=== PATIENT | female | born 1950 | race Caucasian/White ===

== ENCOUNTER 2019-01-23 05:30 | Day surgery (SDC) | payer MEDICARE, SELFPAY ==
--- NOTE | 2019-01-10 20:44 | HP.PCM_ITS ---
History and Physical DATE OF SURGERY: 01/23/2019 SCHEDULED PROCEDURE: Cheilectomy of the left first metatarsal phalangeal joint HISTORY OF PRESENT ILLNESS: This is a 68-year-old female whose been having ongoing pain in bilateral feet for over one year. She denies any trauma or injury. She states her pain is primarily associated when she is walking in her shoe. Her pain is aching and sore. Pain can reach his high as an 8/10 while wearing shoes. She states the pain can get worse with certain shoe wear. Patient does complain of intermittent swelling. She does state her left is worse than her right foot. Pain is alleviated by elevating her feet and taking the shoes off. She denies numbness and tingling. Patient has a medical history pertinent for hypertension. She currently denies any chest pain, shortness of breath, fevers chills, recent infections. After failing conservative measures and discussing all treatment options with Dr. Marga Reyez, the patient would like to proceed with a cheilectomy of the left first metatarsal phalangeal joint. REVIEW OF SYSTEMS: ROS: Const: Denies anorexia, change in appetite, fever, difficulty sleeping, weight change. CV: Denies chest pain, heart murmur, irregular heartbeat and peripheral vascular disease. Resp: Denies asthma, cough, pneumonia, sleep apnea, shortness of breath, tuberculosis and wheezing. GI: Denies constipation, diarrhea, heartburn, nausea, rectal itching, bloody stools and vomiting. : Denies incontinence. Musculo: Denies leg swelling, pain, trouble walking and weakness. Skin: Denies Raynaud's, history of shingles and tattoo. Neuro: Denies ambulatory dysfunction, difficulty with balance, dizziness, numbness/tingling and tremor. Psych: Denies anxiety, depression, insomnia, mental illness and stress. Pj/Lymph: Denies anemia, bleeding/bruising tendency and past transfusion. Reviewed, no changes. PAST MEDICAL HISTORY: Advance Care Plan: No Advance Directives Effective Date: 10/25/2018 PMH: Medical Problems: Arthritis, High Blood Pressure Accidents: None Surgical Hx: Tubal Ligation, Cyst Removal Anesthesia Complications: Nausea Assistive Devices: Glasses Reviewed and updated. SOCIAL HISTORY: SH: Marital: .Occupation: Retired.Work Status: Retired.Hand Dominance: Right- handed. Personal Habits: Cigarette Use: Never Smoked Cigarettes.Alcohol: Denies use.Drug Use: Denies Use.Enjoy Exercising: Exercises 1-3 x/month. Reviewed, no changes. VITALS: Ht: 62 Wt: 143lb Wt k.[id number] BMI: 26.2 BP: 165/90 Pulse: 92 Resp: 16 T: 97.5 T: 36.4C ALLERGIES: No Known Drug Allergy MEDICATIONS: Ibuprofen 200 200 mg prn, Amlodipine Besylate 5 mg 1 tab PO daily, Hydrochlorothiazide 25 mg 1 tab PO daily PRE-OP EXAM: General appearance:NORMAL Other: Eyes: Conjunctivae and lids: NORMAL Pupils: ERR Ears, Nose, Mouth, and Throat: NORMAL Other: Inspection of lips, teeth and gums: NORMAL Other: Neck: Examination of neck: no masses noted. Respiratory: Assessment of respiratory effort: NORMAL Other: Auscultation of lungs: clear to auscultation no wheezes, rhonchi or rales. Cardiovascular: Auscultation of heart: regular rate and rhythm, no murmurs, gallops or rubs. Exam of carotid arteries: NORMAL Other: Gastrointestinal: Exam of abdomen: soft, nontender, nondistended bowel sounds present. PHYSICAL EXAMINATION: Patient has tenderness to palpation over bilateral first metatarsal phalangeal joints. There is hyperpigmentation to the dorsal/medial joint. Patient has extensive exostosis with the left being greater than the right. Range of motion is limited with pain on the first MTP joint bilaterally. Sensation intact to light touch. IMAGING STUDIES: IMPRESSION: 1. Hallux rigidus left foot 2. Hallux rigidus right foot 3. Hypertension PLAN: Dr. Marga Reyez did discuss and review with the patient all treatment options including surgical versus nonsurgical options. Patient does wish to proceed w ith the above-stated procedure. Potential risks, benefits, and complications of the procedure were discussed in detail including but not limited to , infection, nerve and blood vessel damage, persistent pain, numbness, tingling, paresthesias, blood clot, pulmonary embolism, and requirement for possible further surgery. The patient expressed full understanding and has no further questions for the doctor. Patient does agree to proceed with the above-stated procedure and has signed the surgery consent form. This dictation was created using voice recognition software. Phonetic and/or grammatical errors may exist.. ___ I have re-examined the patient. There are no clinical changes since date of exam. ___ See progress notes for changes. ___ Dictated on admission Date: Time: Signature:
[2019-01-23 05:56] VITALS: BP 130/87; PULSE 85; RESP 14; TEMP 36.9; O2SAT 98; BMI 25.7
[2019-01-23] MEDS: Cefazolin 2 GM in 0.9% Normal Saline 100 ML IV (07:20)
--- NOTE | 2019-01-23 07:30 | RAD_ITS ---
STUDY: X-RAY - LEFT FOOT CLINICAL: First metatarsal cheilectomy. TECHNIQUE: 2 intraoperative view(s) of the foot. COMPARISON: None. FINDINGS: There are postoperative changes of the first metatarsal head. There are overlying surgical sponges on the AP view. Electronically Signed: Osmin Puente MD at 12:49 EDT Tel , Service support , RAD/Foot 2 Views
[2019-01-23] MEDS: Bupivacaine Mpf 0.5% 30 ML VIAL (08:25)
[2019-01-23 08:35] VITALS: BP 130/87; BP 144/81; PULSE 82; RESP 12; TEMP 36.8; O2SAT 97
--- NOTE | 2019-01-23 08:37 | RAD_ITS ---
STUDY: X-RAY - LEFT FOOT CLINICAL: Female, 68 years old. Postoperative for first metatarsal phalangeal cheilectomy. TECHNIQUE: 3 view(s) of the foot. COMPARISON: None. FINDINGS: Normal talus, calcaneus, and tarsal bones. Normal visualized subtalar, talonavicular, calcaneocuboid, tarsal and tarsometatarsal articulations. Normal metatarsi. Postoperative changes at the first metatarsophalangeal joint. Normal tibial and fibular sesamoid bones. Normal interphalangeal joint of the great toe. Normal phalanges of the great toe. Normal second through fifth metatarsophalangeal joints. Normal interphalangeal joints and phalanges of the lesser toes. There is non-specific soft tissue swelling of the foot. RAD/Foot min 3 Views IMPRESSION: Postoperative changes at the first metatarsophalangeal joint. Postoperative soft tissue swelling. Electronically Signed: Edward Lara, at 15:26 EDT , Service support ,
--- NOTE | 2019-01-23 08:39 | PCM.OPRPT ---
Report of Operation Date of Procedure: 01/23/19 Pre-Operative Diagnosis: L hallux rigidus; L 1st MPJ OA Post-Operative Diagnosis: same Surgery/Procedure Performed:: L 1st MPJ cheilectomy w/ microfracture of joint Description of Surgical Findings:: see dictation Type of Anesthesia:: General/Supplemental Description of Procedure: Indications: Pt is a 68 yo F with a history of bilateral 1st metatarsophalangeal joint pain and limited motion that has progressively worsened. She was seen in clinic in October 2018 and radiographs were reviewed as were conservative and surgical options. Patient elected to have a cheilectomy of the left foot done first and wanted to wait until the new year. Patient would like surgical intervention today. All risks, complications, and alternatives were discussed with the patient, and the patient signed an informed consent. No guarantees were given. Procedure: On 01/23/2019, Sapna Alexis was visually and verbally identified in the preoperative holding area. The consent form was again reviewed with the patient, as were all risks, complications, and alternatives and the patient wished to proceed with the proposed surgery. The left foot was marked as the correct operative extremity. The patient was brought to the operating room and placed on the operating room table in the normal supine position. After induction by anesthesia, a surgical time out was performed and all present were in agreement. a pneumatic ankle tourniquet was then placed. At this time the left lower extremity was prepped and draped in the usual sterile fashion. after exsanguination with an esmarch the tourniquet was inflated to 250 mmHg. 10 cc of 0.5% marcaine plain was injected as a Lerner block. At this time attention was directed to the Left dorsal 1st metatarsophalangeal joint. Using a #15 blade a longitudinal incision was made just medial and parallel to the extensor hallucis longus tendon from the base of the proximal phalanx of the hallux to the midpoint of the 1st metatarsal. The incision was bluntly carried deep through the subcutaneous tissues with careful attention paid to all bleeders, which were clamped and tied or bovied as necessary. All vital neurovascular structures were retracted. The extensor tendon was retracted.The subcutaneous tissues were reflected from the medial aspect of the 1st metatarsophalangeal joint capsule. Using a sagittal saw bony exostosis was removed from the medial, dorsal and lateral 1st metatarsal head as well as the base of the proximal phalanx. Medially, care was taken to not resect the sagittal groove. A hand rasp was used to contour the bones. Improved range of motion was noted immediately with increased dorsiflexion and plantarflexion of the hallux. The cartilage of the 1st metatarsal head was noted to be thinned. It had a cartilage defect in the lateral central portion and well as dorsomedially. The area was microfractured using a 0.045 k wire. This was then repeated on the thinned cartilage of the base of the proximal phalanx in areas of erosion. The joint was flushed with copious amounts of normal sterile saline. The deep fascia, periosteum, and capsular tissues of all areas were closed with #2-0 Vicryl. Subcutaneous tissues of the incision was closed with #3-0 Vicryl. The skin of the 1st metatarsophalangeal joint incision was closed with #3.0 prolene. An additional 10 cc of 0.5% marcaine plain was injected at the surgical site at the end of the case. Adaptic and Dry sterile dressings were applied with a light compressive dressing. The tourniquet was deflated and immediate capillary refill was noted to all digits. Total tourniquet time was 41 minutes with immediate capillary refill noted to all digits upon deflation. The patient tolerated the procedure and anesthesia well. The patient was then transported to the postanesthesia care unit by a member of the anesthesia team and myself with all vital signs stable and neurovascular status of the left lower extremity equal to pre-operative levels. At the end of the case all sponge, needle and instrument counts were found to be correct. Grafts/Implants Used: none - Complications none - Admit VTE Documentation VTE Present on Admission: No VTE Mechan Device Prophylaxis: SCD's, Knee High ERNESTINE Hose VTE Pharm Prophylaxis ordered?: Yes
--- NOTE | 2019-01-23 08:43 | PCM.DC.ORTHO ---
Discharge Activity: May Not Drive, May not drive while taking narcotic pain medications., May Not Shower, Use Walker, Use Crutches Weight Bearing Status: Partial weight bearing - heel weightbearing in surgical shoe Keep extremity elevated above heart level: Operative Extremity Call your doctor if your incision/area has: Sudden Increased Bleeding Call your doctor if you observe: Fever of 101 or Higher, Shortness of breath, Dizziness, Chest pain, Increased palpitations (irregular heartbeat), Calf discomfort Cleanse incision/area with: Keep Dressing Clean & Dry Allergies/Adverse Reactions: Allergies No Known Allergies Allergy (Verified 01/16/19 14:11) Medications to take at Discharge Amlodipine Besylate 5 mg PO DAILY 01/16/19 Hydrochlorothiazide [Hctz] 25 mg PO DAILY 01/16/19 Acetaminophen/Codeine #3 [Tylenol#3] 1 tab PO Q4H PRN PRN 7 Days #30 tab 01/23/19 The following prescriptions were given: Acetaminophen/Codeine #3 [Tylenol#3] 1 tab PO Q4H PRN PRN 7 Days #30 tab PRN Reason: Pain Primary Care Physician: Marisela Hollis NP-C [Primary Care Provider] - Test Results: Test results from this visit will be discussed in further detail at your follow-up appointment, if applicable. Please Follow Up With: Marga Reyez DPM - Please follow up next week at your previously scheduled post operative appointment Proposed Discharge Date: 01/23/19
[2019-01-23 08:45] VITALS: BP 130/87; BP 133/81; PULSE 75; RESP 14; O2SAT 94
--- NOTE | 2019-01-23 08:46 | DCINST_ITS ---
Discharge Activity: May Not Drive, May not drive while taking narcotic pain medications., May Not Shower, Use Walker, Use Crutches Weight Bearing Status: Partial weight bearing - heel weightbearing in surgical shoe Keep extremity elevated above heart level: Operative Extremity Call your doctor if your incision/area has: Sudden Increased Bleeding Call your doctor if you observe: Fever of 101 or Higher, Shortness of breath, Dizziness, Chest pain, Increased palpitations (irregular heartbeat), Calf discomfort Cleanse incision/area with: Keep Dressing Clean & Dry Allergies/Adverse Reactions: Allergies No Known Allergies Allergy (Verified 01/16/19 14:11) Medications to take at Discharge Amlodipine Besylate 5 mg PO DAILY 01/16/19 Hydrochlorothiazide [Hctz] 25 mg PO DAILY 01/16/19 Acetaminophen/Codeine #3 [Tylenol#3] 1 tab PO Q4H PRN PRN 7 Days #30 tab 01/23/19 The following prescriptions were given: Acetaminophen/Codeine #3 [Tylenol#3] 1 tab PO Q4H PRN PRN 7 Days #30 tab PRN Reason: Pain Primary Care Physician: Marisela Hollis NP-C [Primary Care Provider] - Test Results: Test results from this visit will be discussed in further detail at your follow- up appointment, if applicable. Please Follow Up With: Marga Reyez DPM - Please follow up next week at your previously scheduled post operative appointment Proposed Discharge Date: 01/23/19
[2019-01-23 09:00] VITALS: BP 130/87; BP 142/82; PULSE 76; RESP 14; O2SAT 95
[2019-01-23] MEDS: Ketorolac 30 MG/ML Syringe IV (09:06)
[2019-01-23 09:09] VITALS: BP 130/87; BP 135/82; PULSE 80; RESP 16; TEMP 36.4; O2SAT 92
[2019-01-23 10:57] VITALS: BP 130/87; BP 143/85; PULSE 90; RESP 16; TEMP 36.7; O2SAT 100
== END 2019-01-23 10:59 | disposition home or self-care (01) ==
LOC: SDC 05:35 → AC 05:35
PROVIDERS: Family Provider Nurse Practitioner Primary Care; PCP Nurse Practitioner Primary Care; Referring Provider Podiatrist Foot & Ankle Surgery; Visit Provider Podiatrist Foot & Ankle Surgery
PROC: (CPT 28289; principal; 2019-01-23 07:15)
DX: M20.22 Hallux rigidus, left foot (principal); M20.21 Hallux rigidus, right foot; M18.9 Osteoarthritis of first carpometacarpal joint, unspecified; I10 Essential (primary) hypertension; Z79.899 Other long term (current) drug therapy
CPT/HCPCS: 01480; 28289; 73620; 73630; 76000; J7120; J2405

== ENCOUNTER → 2022-08-16 | Outpatient (CLI) | payer MEDICARE, SELFPAY ==
[2022-08-16 16:52] LABS: Absolute Lymphocyte Count 1.72 X10^3/uL (0.83-4.51); Absolute Neutrophil Count 2.8 X10^3/uL (2.0-7.7); Basophil# 0.02 X10^3/uL; Basophil% 0.4 % (0-1); Eosinophil# 0.08 X10^3/uL; Eosinophils% 1.5 % (0-5); Hematocrit 38.2 % (37-47); Hemoglobin 12.6 g/dL (12.0-15.0); Lymphocyte # 1.72 X10^3/ul (0.83-4.51); Lymphocyte % 33.2 % (19-41); Mean Corpuscular Hgb 26.7 pg (27.0-32.0); Mean Corpuscular Volume 80.9 fL (81-99); Mean Platelet Vol. 9.7 fl (6.2-12.0); Monocyte# 0.54 X10^3/uL; Monocyte% 10.4 % (0-10); NRBC Flagged by Analyzer 0 % (0-5); Neutrophil % 54.1 % (47-70); Platelet Count 215 K/mm3 (150-450); RBC Distribution Width CV 15.9 % (11.6-14.6); RBC Distribution Width SD 46.5 fl (35.1-43.9); Red Blood Count 4.72 M/mm3 (4.2-5.4); White Blood Count 5.2 K/mm3 (4.4-11.0)
[2022-08-16 17:16] LABS: Erythrocyte Sedimentation Rate 90 mm/hr (0-30)
[2022-08-16 17:24] LABS: ALB/GLOB Ratio 0.8 RATIO (0.9-2.4); AST(SGOT) 27 U/L (15-37); Alanine Aminotransfer ALT/SGPT 31 U/L (13-56); Albumin, Serum 3.7 g/dL (3.2-5.0); Alkaline Phosphatase 99 U/L (45-117); Anion Gap 8 (5-15); BUN 13 mg/dL (7-18); BUN/Creat Ratio 13.9 RATIO (10-20); Chloride 104 mmol/L (98-107); Creatinine, Serum 0.93 mg/dL (0.55-1.02); EST Glomerular Filtration Rate 63 mL/min (>60); Est Glom Filt Rate - Afr Amer 76 mL/min (>60); Ferritin 203 ng/mL (8-252); Globulin 4.8 g/dL (2.2-4.2); Glucose 88 mg/dL (74-106); LDH 234 U/L (84-246); Potassium 3.1 mmol/L (3.5-5.1); Protein, Total 8.5 g/dL (6.4-8.2); Sodium Level 139 mmol/L (136-145)
[2022-08-16 17:44] LABS: Prothrombin Time (Protime)PT. 13.4 SECONDS (11.7-14.9)
[2022-08-16 17:45] LABS: International Normalized Ratio 1.1
[2022-08-18 14:09] LABS: Anti-Centromere B Ab <0.2 AI (0.0-0.9); Anti-Chromatin 0.2 AI (0.0-0.9); Anti-Jo <0.2 AI (0.0-0.9); Anti-Scleroderma-70 AB <0.2 AI (0.0-0.9); RNP Ab <0.2 AI (0.0-0.9); SJOGREN'S Anti-SS-A test < 0.2 AI (0.0-0.9); SJOGREN'S Anti-SS-B test 0.3 AI (0.0-0.9); Smith Ab <0.2 AI (0.0-0.9)
[2022-08-19 10:09] LABS: Angiotensin Convert Enzyme 41 U/L (14-82); Cytoplasmic Ab (C-ANCA) <1:20 titer (Neg:<1:20)
[2022-08-19 12:29] LABS: Anti-Mitochondrial AB 73.6 Units (0.0-20.0); Anti-dsDNA Ab 3 IU/mL (0-9)
[2022-08-20 15:32] LABS: Anti-Smooth Muscle ABS 65 Units (0-19); Copper, Serum or Plasma 137 ug/dL (80-158); Haptoglobin 124 mg/dL (42-346); Perinuclear Ab (P-ANCA) <1:20 titer (Neg:<1:20)
== END | disposition home or self-care (01) ==
LOC: LAB 16:26
PROVIDERS: PCP Nurse Practitioner Primary Care; Visit Provider Internal Medicine Gastroenterology
DX: K76.9 Liver disease, unspecified (principal)
CPT/HCPCS: 36415; 80053; 82140; 82164; 82390; 82525; 82728; 83010; 83516; 83615; 85025; 85610; 85652; 86140; 86225; 86235; 86256

== ENCOUNTER → 2022-08-23 | Outpatient (CLI) | payer MEDICARE, SELFPAY ==
[2022-08-23] VITALS (11 sets, daily range): BP systolic 138–183; BP diastolic 73–85; PULSE 59–78; RESP 12–22; TEMP 36.6; O2SAT 95–100; BMI 23.9
--- NOTE | 2022-08-23 | LIV_PTH ---
PATIENT: CELINE NEWTON LOC: [place] U#:[id number] AGE/SX: 71/F ROOM: RE08/23/[address]: Dr. Jet Spencer DO : 1950 BED: DIS: 08/23/2022 SPEC #: [id number] RECD: 08/23/22 12:40 STATUS: PAULA REAristides #: [id number] SHAWNA: 08/23/22 00:[address]: Jet Spencer DEPT: SURGICAL PATHOLOGY RECD BY: Jose Dominguez ENTERED: 08/23/22 12:41 SP TYPE: LIVER RES OTHR DR: Marisela Hollis, CORE ANALYSIS OPERATOR-C Tissues: Liver, NOS Procedures: PAS with Diastase (control) Trichrome (control) Special Stain Group II PAS Stain (control) Surgery Specimen Level V Retic (control) Iron Stain (control) HEADER OPERATION: Liver biopsy PRE-OP DIAGNOSIS: Liver disease TISSUE SUBMITTED: Liver 18-gauge x3 MICROSCOPIC DIAGNOSIS Liver, core biopsy: Consistent with cirrhosis. See microscopic description and comment. SJ:michelle 08/24/2022 COMMENT Correlation with clinical, laboratory studies, radiologic findings and appropriate follow up are necessary. Differential diagnosis includes cirrhosis secondary to primary biliary cirrhosis and/or autoimmune hepatitis. Case has been reviewed in consultation with Dr. Atkins who concurs with the above diagnosis. IDC:[facility] MICROSCOPIC DESCRIPTION Slides are reviewed. The specimen shows liver parenchymal tissue with distortion of normal lobular architecture into multiple nodules divided by fibrous septae. Hepatocytes show focal mild macro- and microvesicular steatosis. Focal minimal inflammation is noted in the nodules. Fibrous septae in between nodules show chronic inflammatory infiltrates consisting predominantly of lymphocytes, rare plasma cells and eosinophils. Granulomas are not seen. Focal interface inflammation is also noted. Focal area also shows minimal bile duct destruction. Iron stain shows absent iron. Reticulin and trichrome stains highlights the fibrous septae. PAS stain with and without diastase do not show any abnormal accumulation of protein. All stains are performed with appropriate matched controls. GROSS DESCRIPTION Received in fixative is one container labeled with the patient's name and designated liver. The specimen consists of three elongated fragments of luna soft tissue each measuring 1.9 cm in length and 0.1 cm in diameter. The specimen is totally submitted in one cassette. / LEATHA:michelle 08/23/2022 TC:3 CPT: 05246, 76884 x5
[2022-08-23] MEDS: Midazolam 2 MG/2 ML Syringe IV (09:12)
[2022-08-23] MEDS: fentaNYL 100 MCG/2 ML Ampul IV (09:14)
[2022-08-23] MEDS: Lidocaine 2% (20 ml mdv) 20 ML Vial INFILT (09:25)
--- NOTE | 2022-08-23 09:35 | CT_ITS ---
PROCEDURE: CT DIRECTED CORE LIVER BIOPSY INDICATION: Female, 71 years old. Liver disease PHYSICIAN: Dr. AMIE Arias CONSENT: Written informed consent was obtained having explained the risks, benefits and alternatives in detail with the patient who accepted the risks and agreed to proceed. Laboratory review and clinical assessment was performed. CONSCIOUS SEDATION PROTOCOL: The Drugs used were: 2 mg Versed, IV., and 50 mcg Fentanyl, IV. The sedation time was: 21 minutes. Conscious sedation was started at 9:12 AM and terminated at 9:33 AM. The conscious sedation protocol was independently monitored. RADIATION DOSAGE (If Supplied By Facility): CTDIvol = ( 15 ) mGy, DLP = ( 266.85 ) mGycm Individualized dose optimization techniques were used for this CT. TECHNIQUE: Using CT image guidance with image documentation, a suitable location in the right lobe of the liver was identified. Using an anterior approach, puncture of the liver was uneventful with an 18-gauge core needle system. 3, 18-gauge core samples were obtained, and submitted in formalin to the pathologist for further assessment. Followup CT scan revealed no distinct sequelae. CT/Biopsy/Inj or Needle Placement IMPRESSION: 1. CT directed core needle biopsy of the liver, using CT image guidance with image documentation as described. 2. Conscious Sedation protocol utilized with independent monitoring. Electronically Signed: Edward Lara MD at 9:54 EDT ,
--- NOTE | 2022-08-23 11:23 | NURSING ---
ChristianoRN spoke with Dr. Lara regarding patient's pain. Pt's VS have remained stable. Pt was having RUQ abdominal pain prior to procedure. Pt describes pain as similar to prior to biopsy, but more severe and constant. Pt instructed to take home pain medications and to avoid any strenuous activity. Pt is agreeable to plan. Pt also given liability claims examiner phone number in case she has any questions or concerns.
== END | disposition home or self-care (01) ==
PROVIDERS: PCP Nurse Practitioner Primary Care; Referring Provider Internal Medicine Gastroenterology; Visit Provider Internal Medicine Gastroenterology
DX: K76.9 Liver disease, unspecified (principal)
CPT/HCPCS: 47000; 77012; 88305; 88307; 88313; 99156; J7050

== ENCOUNTER 2022-10-16 12:13 | Emergency (ER) | payer MEDICARE, SELFPAY ==
[2022-10-16] VITALS (7 sets, daily range): BP systolic 137–154; BP diastolic 68–90; PULSE 77–92; RESP 15–20; TEMP 36.6–37.2; O2SAT 96–100; BMI 24.7
--- NOTE | 2022-10-16 12:33 | EKG12_ITS ---
Test Reason : WEAKNESS Blood Pressure : / mmHG Vent. Rate : 092 BPM Atrial Rate : 092 BPM P-R Int : 128 ms QRS Dur : 072 ms QT Int : 342 ms P-R-T Axes : 014 016 030 degrees QTc Int : 422 ms Normal sinus rhythm Normal ECG Confirmed by BRYCE GRULLON, ADELFO ([id number]), supervising editor news reel BLAINE CRUZ ([id number]) on 10/19/2022 12:35:09 PM Referred By: STEPHANIE Confirmed By:ADELFO WU MD
--- NOTE | 2022-10-16 12:33 | RAD_ITS ---
EXAM: XR CHEST, 1 VIEW CLINICAL INDICATION: cough, sob TECHNIQUE: Frontal view of the chest. This report was created using [employer] report generation technology. COMPARISON: None. FINDINGS: LUNGS AND PLEURAL SPACES: Unremarkable. No consolidation or edema. No pneumothorax. No effusion. HEART: Unremarkable. Cardiac silhouette not enlarged. MEDIASTINUM: Central airways and mediastinal contour are unremarkable. BONES/JOINTS: Unremarkable. SOFT TISSUES: Unremarkable. RAD/Chest 1 View (Portable) IMPRESSION: No radiographic evidence of acute cardiopulmonary disease. Electronically Signed: Jaiden Vu MD at 13:39 EST ,
--- NOTE | 2022-10-16 12:35 | EDS_ITS ---
HPI History of Present Illness Chief Complaint: General Illness Informant: patient Onset/Context/Timing Onset: Days Context: Gradual Onset Narrative Narrative: Patient presents secondary to blood in her stool for the past week with abdominal pain and nausea since yesterday. She has altered taste sensation with a mild cough. [facility]. Her COVID and influenza test were reportedly negative there. Because of her weakness EMS was called and she was transported to the ER. Patient does have a history of autoimmune hepatitis and cirrhosis. She states she has not had GI bleeding in the past. [facility] Medical History Abdominal pain Adrenal nodule Back pain Elevated liver enzymes GERD (gastroesophageal reflux disease) HTN (hypertension) Hyperlipidemia Hypokalemia Nausea Osteoporosis Pelvic pain Thyroid nodule Home Medications amlodipine 5 mg tablet 5 mg PO DAILY 01/16/19 [History Last Taken 01/23/19 04:50 5 MG] hydrochlorothiazide 25 mg tablet 25 mg PO DAILY 01/16/19 [History Last Taken Unknown] atorvastatin 20 mg tablet 20 mg PO DAILY 06/16/22 [History Last Taken Unknown] meloxicam 15 mg tablet 15 mg PO DAILY 06/16/22 [History Last Taken Unknown] omeprazole 40 mg capsule,delayed release 40 mg PO DAILY 06/16/22 [History Last Taken Unknown] azathioprine 50 mg tablet 100 mg PO DAILY #30 tabs 08/25/22 [Rx Last Taken Unknown] prednisone 20 mg tablet 40 mg PO DAILY 30 days #60 tabs 08/25/22 [Rx Last Taken Unknown] ursodiol 250 mg tablet See Rx Instructions .Route .COMPLEX #60 tabs 09/16/22 [Rx Last Taken Unknown] dicyclomine 20 mg tablet 20 mg PO BID PRN abdominal cramping #10 tabs 10/16/22 [Rx Last Taken Unknown] nitrofurantoin monohydrate/macrocrystals 100 mg capsule (Macrobid) 100 mg PO Q12H 5 days #10 caps 10/16/22 [Rx Last Taken Unknown] ondansetron 4 mg disintegrating tablet 4 mg PO Q8H PRN nausea and vomiting #10 tabs 10/16/22 [Rx Last Taken Unknown] Allergy/AdvReac Type Severity Reaction Status Date / Time Estrogens AdvReac Other Verified 10/16/22 12:17 Family History Father Alzheimer disease Mother Diabetes Hypertension Heart disease CVA (cerebral vascular accident) Sister Breast cancer Heart disease Surgical History History of cholecystectomy Social History Smoking Status: Never smoker alcohol intake: never ROS ROS ED Constitutional Constitutional ED: Denies chills or fever(s) Eyes Eyes: Denies change in vision or discharge from eye(s) ENT ENT ED: Denies discharge from eye(s), rhinorrhea or sore throat Cardiovascular Cardiovascular: Denies chest pain or palpitations Respiratory/Chest Respiratory/Chest: Reports cough; Denies dyspnea Gastrointestinal Gastrointestinal: Reports abdominal pain, nausea and other Details: Blood in stool ; Denies diarrhea or vomiting Genitourinary Genitourinary ED: Denies difficulty urinating or dysuria Musculoskeletal Musculoskeletal: Reports myalgias; Denies back pain or extremity pain Integumentary Denies Abrasions or rash Neurologic Neurologic: Reports weakness; Denies headache(s) Psychiatric Psychiatric: Denies anxiety or depression Allergic/Immunologic Allergic/Immunologic ED: Denies lip swelling or urticaria EXAM Physical Exam Const Vital Signs: 10/16/22 12:17 10/16/22 12:22 10/16/22 13:10 Temperature 99.0 F 99.0 F Temperature Source Oral Oral Pulse Rate 92 92 Respiratory Rate 15 15 Respiratory Pattern Normal Blood Pressure 144/90 H 144/90 H Blood Pressure Mean 108 108 Pulse Ox 98 98 Oxygen Delivery Method Room Air Room Air 10/16/22 13:22 10/16/22 13:54 10/16/22 14:48 Temperature 97.9 F Temperature Source Temporal Pulse Rate 77 79 78 Respiratory Rate 16 20 H 18 Respiratory Pattern Blood Pressure 154/89 H 138/90 H 150/85 H Blood Pressure Mean 110 106 106 Pulse Ox 100 96 99 Oxygen Delivery Method Room Air Room Air Room Air 10/16/22 15:00 10/16/22 15:00 Temperature 97.8 F Temperature Source Temporal Pulse Rate 89 Respiratory Rate 16 15 Respiratory Pattern Blood Pressure 150/85 H Blood Pressure Mean 106 Pulse Ox 97 Oxygen Delivery Method Room Air Positive well nourished and well developed General Appearance ED: well developed HEENT Reports normocephalic and head/scalp atraumatic Eyes PERRL and EOMs intact bilaterally Neck supple Chest Wall inspection of chest normal and palpation of chest normal Resp normal respiratory effort and clear to auscultation bilaterally Cardio regular rate and regular rhythm GI GI Narrative: Mild diffuse tenderness in the abdomen, worse in the right upper quadrant. No guarding or rebound. Active bowel sounds are noted. Palpation: soft Extremity normal to inspection Neuro oriented x3 and no sensory deficits noted Sensorium / Orientation: alert Motor Exam: strength 5/5 throughout Psych mental status grossly normal Skin no rashes or lesions noted MDM MDM MDM Narrative Medical decision making narrative: Patient had swab for RSV and COVID performed at [facility] and they were negative. Viral respiratory panel sent here. Lab work obtained along with chest x-ray and EKG. Urinalysis ordered. Lab Data Attestation: I reviewed the patient's lab results. Labs: Laboratory Results - last 24 hr 10/16/22 10/16/22 10/16/22 13:05 13:05 13:05 WBC 7.3 RBC 5.25 Hgb 14.7 Hct 43.4 MCV 82.7 MCH 28.0 MCHC 33.9 RDW Std Deviation 55.4 H RDW Coeff of Jeevan 19.6 H Plt Count 130 L MPV 11.5 Immature Gran % (Auto) 1.800 H Neut % (Auto) 79.4 H Lymph % (Auto) 13.5 L Bailey % (Auto) 4.8 Eos % (Auto) 0.1 Baso % (Auto) 0.4 Absolute Neuts (auto) 5.8 Absolute Lymphs (auto) 0.99 Nucleated RBC % 0 PT 13.7 INR 1.1 APTT 21.2 L Sodium 137 Potassium 3.7 Chloride 98 Carbon Dioxide 32.0 Anion Gap 7 BUN 27 H Creatinine 1.39 H Estim Creat Clear Calc 29.82 Est GFR (MDRD) Af Amer 48 L Est GFR (MDRD) Non-Af 39 L BUN/Creatinine Ratio 19.4 Glucose 493 H* Calcium 10.0 Total Bilirubin 1.70 H Direct Bilirubin 0.36 H AST 12 L ALT 26 Alkaline Phosphatase 83 Total Protein 7.7 Albumin 3.6 Globulin 4.1 Lipase 197 Urine Color Urine Clarity Urine pH Ur Specific Huntington Urine Protein Urine Glucose (UA) Urine Ketones Urine Occult Blood Urine Nitrite Urine Bilirubin Urine Urobilinogen Ur Leukocyte Esterase Urine RBC Urine WBC Ur Squamous Epith Cells Urine Bacteria Urine Mucus POC Glucose 10/16/22 10/16/22 13:45 15:34 WBC RBC Hgb Hct MCV MCH MCHC RDW Std Deviation RDW Coeff of Jeevan Plt Count MPV Immature Gran % (Auto) Neut % (Auto) Lymph % (Auto) Bailey % (Auto) Eos % (Auto) Baso % (Auto) Absolute Neuts (auto) Absolute Lymphs (auto) Nucleated RBC % PT INR APTT Sodium Potassium Chloride Carbon Dioxide Anion Gap BUN Creatinine Estim Creat Clear Calc Est GFR (MDRD) Af Amer Est GFR (MDRD) Non-Af BUN/Creatinine Ratio Glucose Calcium Total Bilirubin Direct Bilirubin AST ALT Alkaline Phosphatase Total Protein Albumin Globulin Lipase Urine Color Yellow Urine Clarity Clear Urine pH 6.5 Ur Specific [place] 1.010 Urine Protein 15 H Urine Glucose (UA) 1000 H Urine Ketones Negative Urine Occult Blood 10 H Urine Nitrite Negative Urine Bilirubin Negative Urine Urobilinogen Normal Ur Leukocyte Esterase 500 H Urine RBC 0-5 SEEN Urine WBC 25-50 SEEN Ur Squamous Epith Cells 5-10 SEEN Urine Bacteria 3+ Urine Mucus 0 SEEN POC Glucose 349 H Radiography Chest X-Ray - ED: 1 View, Read by ED Physician, Normal, Heart, Lungs, Mediastinum and No Infiltrates Diagnostic Testing: Clinical Impression(s) from Imaging Studies Chest X-Ray 10/16/22 12:33 IMPRESSION: No radiographic evidence of acute cardiopulmonary disease. Electronically Signed: Jaiden Vu MD at 13:39 EST Reading Location ID and State: [address] [place] [address] , Service support , EKG Initial EKG: Attestation: I personally reviewed and interpreted this EKG as follows: Interpretation: Sinus Rhythm (Sinus at 92 with no acute ischemia.) Treatment and Re-Evaluation Narrative: Patient is initially given Zofran and IV fluids. Lab work reveals normal white count with only minimal left shift. Chemistry studies significant for glucose of 493. Creatinine is 1.39 which is slightly above her baseline. Urinalysis does reveal infection with 3+ bacteria and 25-50 white cells. She is given a dose of IV Rocephin and urine culture is sent. Chest x-ray per my interpretation reveals no focal infiltrate. Radiology interpretation is r yoanwed. EKG reveals no ischemia. Viral respiratory panel returns negative. After the patient is given IV fluids blood sugar is down to 349. At this time she is able to tolerate p.o. fluids. She will be discharged with prescription for Macrobid, Zojoie, Bentyl. Return instructions are given. Discharge Plan Triage Chief Complaint: General Illness ED Provider: Lizbeth Ansari Dx/Rx/DC Orders Clinical Impression: UTI (urinary tract infection), Nausea, Abdominal pain Instructions: ED Abdominal Pain Unkn Cause Fem, ED Cystitis Female Adult Prescriptions: New nitrofurantoin monohyd/m-cryst [Macrobid] 100 mg capsule 100 mg PO Q12H 5 Days Qty: 10 0RF Rx Instructions: must administer with a meal/food ondansetron 4 mg tablet,disintegrating 4 mg PO Q8H PRN (Reason: nausea and vomiting) Qty: 10 0RF dicyclomine 20 mg tablet 20 mg PO BID PRN (Reason: abdominal cramping) Qty: 10 0RF No Action atorvastatin 20 mg tablet 20 mg PO DAILY meloxicam 15 mg tablet 15 mg PO DAILY omeprazole 40 mg capsule,delayed release(DR/EC) 40 mg PO DAILY amlodipine 5 MG tablet 5 mg PO DAILY hydrochlorothiazide 25 MG tablet 25 mg PO DAILY prednisone 20 mg tablet 40 mg PO DAILY 30 Days Qty: 60 1RF azathioprine 50 mg tablet 100 mg PO DAILY Qty: 30 2RF ursodiol 250 mg tablet See Rx Instructions .ROUTE .COMPLEX Qty: 60 11RF Dose Instruction: TAKE 1 TABLET BY MOUTH TWICE A DAY Rx Instructions: TAKE 1 TABLET BY MOUTH TWICE A DAY Primary Care Provider: Marisela Hollis NP Referrals: Marisela Hollis NP, SUPERVISOR FUR FLOOR WORKER-C [Primary Care Provider] - 1 Week Disposition Disposition: Home, Self Care
[2022-10-16] MEDS: 0.9% Normal Saline 1,000 ML 150 ML IV (13:05)
[2022-10-16] MEDS: Ondansetron 4 MG/2 ML Vial IV (13:06)
[2022-10-16 13:23] LABS: Absolute Lymphocyte Count 0.99 X10^3/uL (0.83-4.51); Absolute Neutrophil Count 5.8 X10^3/uL (2.0-7.7); Basophil# 0.03 X10^3/uL; Basophil% 0.4 % (0-1); Eosinophil# 0.01 X10^3/uL; Eosinophils% 0.1 % (0-5); Hematocrit 43.4 % (37-47); Hemoglobin 14.7 g/dL (12.0-15.0); Lymphocyte # 0.99 X10^3/ul (0.83-4.51); Lymphocyte % 13.5 % (19-41); Mean Corp Hgb Conc 33.9 g/dL (32-36); Mean Corpuscular Volume 82.7 fL (81-99); Mean Platelet Vol. 11.5 fl (6.2-12.0); Monocyte# 0.35 X10^3/uL; Monocyte% 4.8 % (0-10); NRBC Flagged by Analyzer 0 % (0-5); Neutrophil # 5.81 X10^3/uL (2.7-7.7); Neutrophil % 79.4 % (47-70); Platelet Count 130 K/mm3 (150-450); RBC Distribution Width CV 19.6 % (11.6-14.6); RBC Distribution Width SD 55.4 fl (35.1-43.9); Red Blood Count 5.25 M/mm3 (4.2-5.4); White Blood Count 7.3 K/mm3 (4.4-11.0)
[2022-10-16 13:47] LABS: International Normalized Ratio 1.1; Partial Thromboplast Time 21.2 Seconds (24.1-36.2); Prothrombin Time (Protime)PT. 13.7 SECONDS (11.7-14.9)
[2022-10-16 13:50] LABS: AST(SGOT) 12 U/L (15-37); Alanine Aminotransfer ALT/SGPT 26 U/L (13-56); Albumin, Serum 3.6 g/dL (3.2-5.0); Alkaline Phosphatase 83 U/L (45-117); Anion Gap 7 (5-15); BUN 27 mg/dL (7-18); BUN/Creat Ratio 19.4 RATIO (10-20); Bilirubin, Direct 0.36 mg/dL (0.00-0.30); Chloride 98 mmol/L (98-107); Creatinine, Serum 1.39 mg/dL (0.55-1.02); EST Glomerular Filtration Rate 39 mL/min (>60); Est Glom Filt Rate - Afr Amer 48 mL/min (>60); Estimated Creatinine Clearance 29.82 ml/min; Globulin 4.1 g/dL (2.2-4.2); Glucose 493 mg/dL (74-106); Lipase 197 U/L (73-393); Potassium 3.7 mmol/L (3.5-5.1); Protein, Total 7.7 g/dL (6.4-8.2); Sodium Level 137 mmol/L (136-145)
[2022-10-16 13:52] LABS: Color, Urine Yellow (Yellow); Glucose, Dipstick 1000 mg/dl (Normal); Ketone-Dipstick Negative (Negative); Leukocyte Esterase-Dipstick 500 /ul (Negative); Nitrite-Dipstick Negative (Negative); Occult Blood-Urine 10 /ul (Negative); Protein-Dipstick 15 mg/dl (Negative); Urine Bilirubin Dipstick Negative (Negative); Urine Clarity Clear (Clear); Urine Urobilinogen Normal (Normal); Urine pH 6.5 (5.0 - 8.0)
[2022-10-16 13:53] LABS: Mucous, Urine 0 SEEN /hpf (<or=2+)
[2022-10-16 14:02] LABS: Bacteria 3+ /hpf (None Seen); Red Blood Cells-Urine 0-5 SEEN /hpf (0-5); Squamous Epithelial Cells - UA 5-10 SEEN /hpf (5-10); White Blood Cells 25-50 SEEN /hpf (0-5)
[2022-10-16] MEDS: 0.9% Normal Saline 1,000 ML 999 ML IV (14:19)
[2022-10-16] MEDS: Ceftriaxone 1 GM/50 ML BAG IV (15:17)
[2022-10-16 15:55] LABS: Bedside Glucose 349 mg/dL (74-106)
== END 2022-10-16 16:41 | disposition home or self-care (01) ==
PROVIDERS: Emergency Provider Emergency Medicine; PCP Nurse Practitioner Primary Care; Visit Provider Emergency Medicine
DX: N39.0 Urinary tract infection, site not specified (principal); K74.60 Unspecified cirrhosis of liver; K75.4 Autoimmune hepatitis; I10 Essential (primary) hypertension; E78.5 Hyperlipidemia, unspecified; R11.0 Nausea; Z20.822 Contact with and (suspected) exposure to COVID-19; R10.9 Unspecified abdominal pain; Z90.49 Acquired absence of other specified parts of digestive tract
CPT/HCPCS: 71045; 80048; 80076; 81001; 82962; 83690; 85025; 85610; 85730; 87086; 87088; 87633; 93005; 96365; 96375; 99285; J7030; A4216; J2405

== ENCOUNTER → 2022-11-17 | Outpatient (CLI) | payer MEDICARE, SELFPAY ==
[2022-11-17 16:35] LABS: Absolute Lymphocyte Count 1.53 X10^3/uL (0.83-4.51); Absolute Neutrophil Count 7.7 X10^3/uL (2.0-7.7); Basophil# 0.02 X10^3/uL; Basophil% 0.2 % (0-1); Eosinophil# 0.02 X10^3/uL; Eosinophils% 0.2 % (0-5); Hematocrit 35.7 % (37-47); Hemoglobin 12.2 g/dL (12.0-15.0); Lymphocyte # 1.53 X10^3/ul (0.83-4.51); Lymphocyte % 15.4 % (19-41); Mean Corp Hgb Conc 34.2 g/dL (32-36); Mean Corpuscular Hgb 29.5 pg (27.0-32.0); Mean Corpuscular Volume 86.2 fL (81-99); Mean Platelet Vol. 10.5 fl (6.2-12.0); Monocyte# 0.51 X10^3/uL; Monocyte% 5.1 % (0-10); NRBC Flagged by Analyzer 0 % (0-5); Neutrophil # 7.68 X10^3/uL (2.7-7.7); Neutrophil % 77.5 % (47-70); Platelet Count 185 K/mm3 (150-450); RBC Distribution Width CV 19.9 % (11.6-14.6); RBC Distribution Width SD 61.8 fl (35.1-43.9); Red Blood Count 4.14 M/mm3 (4.2-5.4); White Blood Count 9.9 K/mm3 (4.4-11.0)
[2022-11-17 16:45] LABS: Erythrocyte Sedimentation Rate 41 mm/hr (0-30)
[2022-11-17 16:49] LABS: Partial Thromboplast Time 23.1 Seconds (24.1-36.2); Prothrombin Time (Protime)PT. 13.3 SECONDS (11.7-14.9)
[2022-11-17 17:37] LABS: ALB/GLOB Ratio 0.9 RATIO (0.9-2.4); AST(SGOT) 14 U/L (15-37); Alanine Aminotransfer ALT/SGPT 24 U/L (13-56); Albumin, Serum 3.2 g/dL (3.2-5.0); Alkaline Phosphatase 58 U/L (45-117); Anion Gap 9 (5-15); BUN 20 mg/dL (7-18); BUN/Creat Ratio 24.7 RATIO (10-20); CRP 4.22 mg/L (0.0-3.0); Calcium,Total 9.1 mg/dL (8.5-10.1); Chloride 103 mmol/L (98-107); Creatinine, Serum 0.81 mg/dL (0.55-1.02); EST Glomerular Filtration Rate 74 mL/min (>60); Est Glom Filt Rate - Afr Amer 89 mL/min (>60); Ferritin 329 ng/mL (8-252); Globulin 3.4 g/dL (2.2-4.2); Glucose 72 mg/dL (74-106); Potassium 2.8 mmol/L (3.5-5.1); Protein, Total 6.6 g/dL (6.4-8.2); Sodium Level 138 mmol/L (136-145)
[2022-11-19 20:07] LABS: AFP, Tumor Marker 6.3 ng/mL (0.0-9.2); Anti-Mitochondrial AB <20.0 Units (0.0-20.0); Anti-Smooth Muscle ABS 31 Units (0-19); Haptoglobin 163 mg/dL (42-346)
== END | disposition home or self-care (01) ==
LOC: LAB 15:44
PROVIDERS: PCP Nurse Practitioner Primary Care; Visit Provider Internal Medicine Gastroenterology
DX: K74.3 Primary biliary cirrhosis (principal); K75.4 Autoimmune hepatitis
CPT/HCPCS: 36415; 80053; 82105; 82140; 82728; 83010; 83516; 85025; 85610; 85652; 85730; 86140

== ENCOUNTER → 2023-03-09 | Outpatient (CLI) | payer MEDICARE, SELFPAY ==
[2023-03-09 15:15] LABS: Prothrombin Time (Protime)PT. 12.8 SECONDS (11.7-14.9)
[2023-03-09 15:35] LABS: Erythrocyte Sedimentation Rate 42 mm/hr (0-30)
[2023-03-09 15:38] LABS: Absolute Lymphocyte Count 0.88 X10^3/uL (0.83-4.51); Absolute Neutrophil Count 1.7 X10^3/uL (2.0-7.7); Basophil# 0.03 X10^3/uL; Eosinophil# 0.06 X10^3/uL; Hematocrit 35.7 % (37-47); Hemoglobin 11.8 g/dL (12.0-15.0); Lymphocyte # 0.88 X10^3/ul (0.83-4.51); Lymphocyte % 29.8 % (19-41); Mean Corp Hgb Conc 33.1 g/dL (32-36); Mean Corpuscular Hgb 29.8 pg (27.0-32.0); Mean Corpuscular Volume 90.2 fL (81-99); Mean Platelet Vol. 11.8 fl (6.2-12.0); Monocyte# 0.26 X10^3/uL; Monocyte% 8.8 % (0-10); NRBC Flagged by Analyzer 0 % (0-5); Neutrophil % 57.7 % (47-70); Platelet Count 233 K/mm3 (150-450); RBC Distribution Width CV 14.6 % (11.6-14.6); RBC Distribution Width SD 47.9 fl (35.1-43.9); Red Blood Count 3.96 M/mm3 (4.2-5.4)
[2023-03-09 16:15] LABS: ALB/GLOB Ratio 1.1 RATIO (0.9-2.4); AST(SGOT) 15 U/L (15-37); Alanine Aminotransfer ALT/SGPT 15 U/L (13-56); Albumin, Serum 3.7 g/dL (3.2-5.0); Alkaline Phosphatase 49 U/L (45-117); Anion Gap 2 (5-15); BUN 11 mg/dL (7-18); BUN/Creat Ratio 14.9 RATIO (10-20); CRP < 2.90 mg/L (0.0-3.0); Calcium,Total 9.3 mg/dL (8.5-10.1); Chloride 107 mmol/L (98-107); Creatinine, Serum 0.74 mg/dL (0.55-1.02); EST Glomerular Filtration Rate 82 mL/min (>60); Est Glom Filt Rate - Afr Amer 99 mL/min (>60); Globulin 3.4 g/dL (2.2-4.2); Glucose 140 mg/dL (74-106); LDH 192 U/L (84-246); Potassium 2.7 mmol/L (3.5-5.1); Protein, Total 7.1 g/dL (6.4-8.2); Sodium Level 139 mmol/L (136-145)
[2023-03-11 14:09] LABS: Anti-Mitochondrial AB <20.0 Units (0.0-20.0); Anti-Smooth Muscle ABS 25 Units (0-19)
== END | disposition home or self-care (01) ==
LOC: LAB 13:53
PROVIDERS: PCP Nurse Practitioner Primary Care; Referring Provider Internal Medicine Gastroenterology; Visit Provider Internal Medicine Gastroenterology
DX: K74.3 Primary biliary cirrhosis (principal); K75.4 Autoimmune hepatitis
CPT/HCPCS: 36415; 80053; 82140; 83516; 83615; 85025; 85610; 85652; 86140

== ENCOUNTER 2023-07-11 15:53 | Observation (INO) | payer MEDICARE, SELFPAY ==
[2023-06-28 13:02] LABS: Hematocrit 37.6 % (37-47); Hemoglobin 12.7 g/dL (12.0-15.0); Mean Corp Hgb Conc 33.8 g/dL (32-36); Mean Corpuscular Hgb 30.7 pg (27.0-32.0); Mean Corpuscular Volume 90.8 fL (81-99); Mean Platelet Vol. 10.2 fl (6.2-12.0); Platelet Count 185 K/mm3 (150-450); RBC Distribution Width SD 52.9 fl (35.1-43.9); Red Blood Count 4.14 M/mm3 (4.2-5.4); White Blood Count 3.4 K/mm3 (4.4-11.0)
[2023-06-28 13:21] LABS: Anion Gap 6 (5-15); BUN 19 mg/dL (7-18); Calcium,Total 9.7 mg/dL (8.5-10.1); Chloride 106 mmol/L (98-107); EST Glomerular Filtration Rate 58 mL/min (>60); Est Glom Filt Rate - Afr Amer 70 mL/min (>60); Glucose 109 mg/dL (74-106); Potassium 3.7 mmol/L (3.5-5.1); Sodium Level 139 mmol/L (136-145)
--- NOTE | 2023-06-28 13:39 | EKG12_ITS ---
Test Reason : PRE OP Blood Pressure : / mmHG Vent. Rate : 081 BPM Atrial Rate : 081 BPM P-R Int : 160 ms QRS Dur : 076 ms QT Int : 364 ms P-R-T Axes : 018 008 047 degrees QTc Int : 422 ms Normal sinus rhythm Possible Left atrial enlargement Septal infarct , age undetermined Abnormal ECG Confirmed by NING BELL ([id number]), editor publications FRANKLIN WILEY ([id number]) on 07/02/2023 9:41:00 AM Referred By: Pete Rowland Confirmed By:NING BELL
[2023-07-11] VITALS (23 sets, daily range): BP systolic 89–161; BP diastolic 55–87; PULSE 55–80; RESP 15–18; TEMP 36.1–36.9; O2SAT 94–100; BMI 22.6
[2023-07-11] MEDS: Magnesium 1 GM over 15 mins IV (06:46)
[2023-07-11] MEDS: Lactated Ringers 1,000 ML 999 ML IV ×2 (06:46→09:20)
[2023-07-11] MEDS: Gabapentin 600 MG Tablet PO (06:47)
[2023-07-11] MEDS: Acetaminophen 500 MG Tablet 1000 MG PO ×3 (06:47→22:49)
[2023-07-11] MEDS: Celecoxib 200 MG Capsule 400 MG PO (06:48)
[2023-07-11 07:04] LABS: Bedside Glucose 89 mg/dL (74-106)
--- NOTE | 2023-07-11 07:30 | HIP_PTH ---
PATIENT: CELINE NEWTON LOC: MS3 U#:[id number] AGE/SX: 72/F ROOM: PA319 RE07/11/[address]: Dr. Pete Rowland DO : 1950 BED: 1 DIS: 07/13/2023 SPEC #[id number] RECD: 07/11/23 18:52 STATUS: PAULA REAristides #: [id number] SHAWNA: 07/11/23 07:[address]: Pete Rowland DEPT: SURGICAL PATHOLOGY RECD BY: Prasad Barrios ENTERED: 07/12/23 07:39 SP TYPE: TOTAL HIP OTHR DR: Marisela Hollis, HEARING IMPAIRED TEACHER-C Tissues: Hip, NOS Procedures: Decalcification bone/plaque Surgery Specimen Level IV HEADER OPERATION: ERAS, total hip replacement PRE-OP DIAGNOSIS: Osteoarthritis right hip TISSUE SUBMITTED: Bone and tissue right hip MICROSCOPIC DIAGNOSIS Right hip bone and soft tissue, total hip replacement/resection: Femoral head with degenerative osteoarthritic changes. LEATHA:michelle 07/15/2023 MICROSCOPIC DESCRIPTION Slides are reviewed. GROSS DESCRIPTION Received is one container labeled with the patient's name and designated bone and soft tissue right hip. The specimen consists of a luna femoral head with portion of femoral neck. The femoral head measures 4.0 x 4.5 x 4.0 cm and the femoral neck measures up to 1.5 cm in length. The articular surface displays prominent osteophyte formation and bone erosion. Also present in the specimen container are multiple irregular fragments of bone reamings and pink-yellow soft tissue measuring in aggregate 6.0 x 5.5 x 2.0 cm. The soft tissue predominantly consists of bone reamings. Table Machine Operator sections are submitted in two cassettes as follows: 1 - soft tissue and bone reamings, 2 - femoral head after decalcification. / LEATHA:michelle 07/12/2023 TC:5 CPT: 89341, 97850
[2023-07-11] MEDS: Cefazolin 2 GM in 0.9% Normal Saline 100 ML IV (07:41)
[2023-07-11] MEDS: TXA 1000mg in NS100 100ml (IVPB at Incision) 660 MG IV (08:00)
[2023-07-11] MEDS: dexAMETHasone 10 MG/ML Vial IV (08:03)
[2023-07-11] MEDS: TXA 1000mg in NS100 100ml (IVPB at Closure) 660 MG IV (08:38)
[2023-07-11] MEDS: JPS (Morphine 10mg/ml) OPERA.SITE (08:40)
--- NOTE | 2023-07-11 09:11 | PCM.OPRPT ---
Report of Operation Date of Procedure: 07/11/23 Pre-Operative Diagnosis: OA right hip Post-Operative Diagnosis: same Surgery/Procedure Performed:: Right THR Description of Surgical Findings:: Report of Operation Date of Procedure: 07/11/2023 Pre-Operative Diagnosis: OA [right ] hip Post-Operative Diagnosis: same Surgery/Procedure Performed: [Right ] THR environmental designer: Scott Richardson PA-C Type of Anesthesia: Spinal Anesthesiologist: Kevin Christine M.D. Specimen's removed: bone Estimated Blood Loss (mL): 50 cc Implants: [place] hemispherical 46 mm cluster hole cup, neutral MDM liner, Accolade 2 size 2 femoral stem Surgical Indications: Patient has severe end-stage osteoarthritic changes in the [right ] hip. They have failed conservative measures including activity modification, anti-inflammatories, use of assistive devices. This to the point where the pain affects their ability to enjoy life and complete activities of daily living without discomfort. Patient has elected to undergo the above procedure Procedure Description: The patient was greeted in the preoperative area the [ right ] hip was marked with surgical marker preoperative antibiotics administered. The patient was then taken to or suite in stable condition. Preoperative tranexamic acid was also utilized. Once the patient was placed in the supine position on the operating room table and once adequate anesthesia was obtained they were then placed in the lateral decubitus position with the surgical hip facing the field. All bony prominences were well-padded. A commercial hip position was utilized. The appropriate extremity was then prepped and draped in usual sterile fashion. Ioban was placed on the skin. Surgical timeout was performed and surgery was commenced. A standard posterior approach to the hip was then performed. Incision was planned and carried out with a #10 blade scalpel. Dissection was then carried length of the incision to the IT band which was split proximally and distally. A Charnley retractor was then placed for soft tissue retraction exposing the piriformis. A standard posterior capsulotomy was performed. Severe eburnation of bone was noted and periarticular osteophytes were identified consistent with severe end-stage osteoarthritis. A femoral neck osteotomy guide was used to jonh the proximal femur. A femoral osteotomy was then created approximately 1 fingerbreadth above the lesser trochanter. This was measured and placed on the back table. Once this was complete acetabular retractors were placed anteriorly and posteriorly. Labrum was then removed from the acetabulum exposing the entire cup of the acetabulum. Sequential reaming was then commenced and the acetabulum was medialized and sequentially widened in order to accommodate appropriate size cup. The acetabular cup was then impacted into position to the appropriate depth referencing approximately [40 ] anteversion and [ 40 ]of inclination. Excellent purchase was obtained. An appropriate size MDM liner was then placed. Attention was then turned to the femoral preparation. The hip was placed in the 90/90 position and a lateralizing box osteotome was utilized. Femoral starting awl was used followed by sequential broaching to the appropriate size. Excellent purchase was obtained with the stem no stem subsidence and excellent rotational stability was confirmed. A calcar reamer was then used in the trial head neck was placed on the broach. The hip was then located and taken through full range of motion flexion internal and external rotation as well as extension. Excellent stability was noted no impingement was identified of the components and leg lengths appear to be appropriate. The hip was at this point dislocated and the trial femoral components were removed. The final femoral stem was then implanted and impacted to the appropriate depth. Again excellent purchase was obtained no stem subsidence or rotational instability was noted. The hip was once again trialed and confirmation of leg length and stability was performed. Soft tissue tension also appeared to be appropriate. At this point the hip was redislocated and the trunnion was cleaned and dried meticulously in the appropriate size MDM femoral head was placed on the clean dry trunnion using a 12/14 العراقي taper. The hip was once again relocated and again taken through full range of motion. I did inject a cocktail of postoperative pain medication in the deep and superficial tissues. Copious irrigation was performed. Anatomic closure of the piriformis tendon was performed through drill holes in the greater trochanter. A #1 Vicryl 0 Vicryl was utilized in subcutaneous tissue and surgical twila were placed in the skin. A well-padded nonadherent dressing was applied. Patient was taken to PACU in stable condition. No complications were identified. Will follow standard postop protocol for total hip arthroplasty. My assistant manager trainee played a vital role in the procedure beginning with positioning, holding retraction of soft tissues, positioning the leg to optimize visualization during the procedure and assisting with wound closure. Post-op Plan: DVT ppx; ASA 81 mg BID, thigh high compression stockings Follow up: in office in 2 weeks for wound check PT: to start POD #0 at hospital, outpatient PT should be arranged. Preoperative antibiotic: Ancef 2 grams IV Pete Rowland DO Surgeon: Pete Rowland environmental designer: Scott Richardson Type of Anesthesia: Spinal Anesthesiologist: Kevin Christine Estimated Blood Loss (mL): 50 cc Fluids Replaced: 1000 cc crystalloid Admit VTE Documentation VTE Present on Admission: No VTE Mechan Device Prophylaxis: SCD's and Thigh High ERNESTINE Hose VTE Pharm Prophylaxis ordered?: Yes
--- NOTE | 2023-07-11 09:15 | RAD_ITS ---
INDICATION: Post Op -- AP both hips on single leopoldo/lateral of op hip PACU EXAMINATION/TECHNIQUE: X-RAY - XR Hip Unilateral with Pelvis when performed; 2-3 Views COMPARISON: No relevant prior comparison study available FINDINGS: There is a total right hip arthroplasty in place. The alignment is anatomic. There are postsurgical changes within the soft tissues of the lateral upper thigh. RAD/HIP, UNI W/ Pelvis 2-3 Views IMPRESSION: Total right hip arthroplasty, grossly anatomic in alignment. Electronically Signed: Jasmin Bird MD at 10:13 EDT ,
[2023-07-11] MEDS: Lactated Ringers 1,000 ML 125 ML IV (10:20)
[2023-07-11 12:54] LABS: Bedside Glucose 121 mg/dL (74-106)
--- NOTE | 2023-07-11 12:55 | CASEMGMT ---
Social Work Pt's sister Ifrah Herr ([phone]) requesting to speak with SW. Pt is currently in surgery for hip replacement. Miriam states pt lives at home alone and believes pt would benefit from staying at the hospital post acute stay for rehabilitation. Ifrah also states pt does not have anyone that lives locally to assist her upon discharge. ANA explained that pt will be assessed tomorrow for appropriate discharge planning after therapy has seen pt. SW discussed Inpt Rehab/SNF, home with home health and home with outpt. ANA explained level of care will be determined by pts functional ability after surgery and that insurance preauth will need to be obtained if pt goes to SNF/Rehab and this is not guaranteed. ANA/ARIELLA to followup with pt tomorrow. FAYE Meeks
[2023-07-11] MEDS: Cefazolin 1 GM/50 ML BAG IV ×2 (15:41→22:49)
[2023-07-11] MEDS: Ursodiol 250 MG Tablet PO ×2 (17:09→22:50)
[2023-07-11] MEDS: Aspirin 81 MG TAB.CHEW PO (17:09)
[2023-07-11] MEDS: Potassium Chloride Oral Tablet 20 MEQ PO (17:10)
[2023-07-11] MEDS: azaTHIOprine 50 MG Tablet PO (22:50)
[2023-07-11] MEDS: Senna/Docusate Sodium 1 Tablet 2 TABLET PO (22:50)
[2023-07-12 04:04] VITALS: BP 156/77; PULSE 57; RESP 16; TEMP 36.8; O2SAT 97
[2023-07-12] MEDS: Acetaminophen 500 MG Tablet 1000 MG PO ×3 (06:26→20:20)
[2023-07-12 07:15] LABS: Hematocrit 32.6 % (37-47); Hemoglobin 10.7 g/dL (12.0-15.0); Mean Corp Hgb Conc 32.8 g/dL (32-36); Mean Corpuscular Hgb 30.1 pg (27.0-32.0); Mean Corpuscular Volume 91.6 fL (81-99); Platelet Count 156 K/mm3 (150-450); RBC Distribution Width CV 15.7 % (11.6-14.6); RBC Distribution Width SD 53.1 fl (35.1-43.9); Red Blood Count 3.56 M/mm3 (4.2-5.4); White Blood Count 7.7 K/mm3 (4.4-11.0)
[2023-07-12 07:42] LABS: Anion Gap 4 (5-15); BUN 10 mg/dL (7-18); BUN/Creat Ratio 13.4 RATIO (10-20); Calcium,Total 8.9 mg/dL (8.5-10.1); Chloride 108 mmol/L (98-107); Creatinine, Serum 0.75 mg/dL (0.55-1.02); EST Glomerular Filtration Rate 80 mL/min (>60); Est Glom Filt Rate - Afr Amer 97 mL/min (>60); Estimated Creatinine Clearance 40.83 ml/min; Glucose 108 mg/dL (74-106); Sodium Level 141 mmol/L (136-145)
--- NOTE | 2023-07-12 07:54 | PCM.PN.ORT ---
Subjective Subjective Patient lying in bed sleeping. Patient easy to awake. She states her pain has been very well managed. She has been up twice ambulating. Denies chest pain, shortness of breath, calf pain, nausea vomiting. No other complaints at this time. Patient is requesting to be placed in rehab or ECF as she has no one at home to help her. Objective Data Objective Data Vital Signs: Vital Signs Temp Pulse Resp BP Pulse Ox O2 Del Method O2 Flow Rate 98.2 F 57 L 16 156/77 H 97 Room Air 2 07/12/23 04:04 07/12/23 04:04 07/12/23 04:04 07/12/23 04:04 07/12/23 04:04 07/12/23 04:04 07/11/23 12:15 Oxygen Flow Rate (L/min) 2 Oxygen Delivery Method Room Air Weight: 58 kg Body Mass Index (BMI) 22.6 Intake & Output: Intake and Output for Last 24 Hours 07/10/23 07/11/23 07/12/23 23:59 23:59 23:59 Intake Total 3429.92 / 3429.92 1300 / 1300 Output Total 900 / 900 Balance 3429.92 / 3429.92 400 / 400 Lab / Micro Data 07/12/23 06:45 07/12/23 06:45 Labs: Laboratory Results - last 24 hr 07/11/23 12:36: POC Glucose 121 H 07/12/23 06:45: WBC 7.7, RBC 3.56 L, Hgb 10.7 L, Hct 32.6 L, MCV 91.6, MCH 30.1, MCHC 32.8, RDW Std Deviation 53.1 H, RDW Coeff of Jeevan 15.7 H, Plt Count 156, MPV 11.0, Sodium 141, Potassium 4.0, Chloride 108 H, Carbon Dioxide 29.0, Anion Gap 4 L, BUN 10, Creatinine 0.75, Estim Creat Clear Calc 40.83, Est GFR (MDRD) Af Amer 97, Est GFR (MDRD) Non-Af 80, BUN/Creatinine Ratio 13.4, Glucose 108 H, Calcium 8.9 Micro: Microbiology 06/28/23 12:44 Swab (Method) Nasal Screen MRSA/MSSA - Final Radiography Diagnostic Testing: Radiology Impression Hip/Pelvis X-Ray 07/11/23 09:15 IMPRESSION: Total right hip arthroplasty, grossly anatomic in alignment. Electronically Signed: Jasmin Bird MD at 10:13 EDT , Physical Exam Narrative Exam I found patient sleeping in bed. She was easy to awake alert oriented. No respiratory distress speaking is full sentences. The dressing is clean dry intact. Patient has full range of motion of the upper extremities good muscle tone and strength. She has good motion of bilateral knees ankle and feet. No calf tenderness. Neurovascular is otherwise intact. Const alert and oriented x3 General Appearance: cooperative HEENT normocephalic Eyes PERRL Resp normal respiratory effort Effort and Inspection: able to speak in complete sentences Cardio regular rate Extremity normal capillary refill Skin no rashes or lesions noted Neuro CN's II-XII intact bilaterally Psych mental status grossly normal Assessment & Plan Assessment/Plan (1) S/P total right hip arthroplasty: PLAN: 1. Continue all pain medications as prescribed 2. Aspirin 81 mg 1 p.o. every 12 hours x30 days for postop DVT prophylaxis 3. Encourage incentive spirometry 4. Weight-bear as tolerated ambulate with use of walker 5. Ice to right hip 6. Possible placement to fourth floor rehab, or ECF
[2023-07-12 08:00] VITALS: BP 165/81; PULSE 75; RESP 16; TEMP 36.6; O2SAT 98
[2023-07-12] MEDS: Potassium Chloride Oral Tablet 20 MEQ PO ×2 (08:34→18:16)
[2023-07-12] MEDS: hydroCHLOROthiazide 25 MG Tablet PO (08:34)
[2023-07-12] MEDS: Aspirin 81 MG TAB.CHEW PO ×2 (08:34→18:16)
[2023-07-12] MEDS: Ursodiol 250 MG Tablet PO ×2 (08:34→20:21)
[2023-07-12] MEDS: azaTHIOprine 50 MG Tablet PO ×2 (08:35→20:20)
[2023-07-12] MEDS: amLODIPine 5 MG Tablet PO (08:35)
[2023-07-12] MEDS: Atorvastatin Calcium 20 MG Tablet PO (08:35)
[2023-07-12] MEDS: Pantoprazole Sodium 40 MG Tablet PO (08:35)
[2023-07-12] MEDS: Senna/Docusate Sodium 1 Tablet 2 TABLET PO (08:35)
[2023-07-12 13:44] VITALS: O2SAT 96
--- NOTE | 2023-07-12 14:35 | CASEMGMT ---
DENILSON KRISHNAN Assessment: Face to Face with pt for initial transition planning/care coordination assessment. RN ARIELLA introduced self and role at [facility], pt voices understanding and consents to assessment. Pt is A/O x4 and answers all questions appropriately at this time. Pt lying in bed in no distress. Care providers, pharmacy, and demographics verified/updated. Admitting Dx: THR PCP:Marisela Hollis NP Specialists:Janett, ortho; Friend, GI Preferred Pharmacy: [facility] Insurance: [employer] Prescription Benefit: yes LNOK: Malia Rivero, Sister in law; Marga Yin, dtr Living Arrangements: Pt lives alone in a single story home with 2 steps to enter through the garage without a rail. Pt reports she was I in ADL's prior to surgery. Pt reports she does not have anyone at home to prepare meals or assist her. Pt called her brother Josh and we all spoke on speakerphone. He confirms there is no one to assist. Transportation: Pt drives self prior to surgery and has no one to transport her post surgery. DME/HHC/SNF: Pt has a cane, FWW that is too high and she states she needs a new one. Pt denies hx of HHC or SNF stays. Pt states she would like to go to a facility for therapy post hospitalization. Made pt aware that currently with how pt did with therapy her insurance is not likely to approve a SNF stay. Made pt aware this RN ARIELLA could set her up with HHC at home for therapy. She states she is agreeable to this. Pt will work on plan for dc to home. Pt states no further concerns/needs. CM to follow. Advised pt to ask CM if any further question/concerns/needs arise, voices understanding. Pt Goal: Home with HHC Plan: Home with HHC
[2023-07-12 14:47] VITALS: BP 153/76; PULSE 68; RESP 16; TEMP 37; O2SAT 100
--- NOTE | 2023-07-12 17:11 | CASEMGMT ---
Met with patient to complete REDDING form. REDDING form explained to patient who voiced understanding and signed form. Original form placed in pt?s chart and copy provided to patient. Anusha Stevens, Discharge Planning Asst.?
[2023-07-12 20:13] VITALS: BP 130/68; PULSE 81; RESP 15; TEMP 36.6; O2SAT 96
[2023-07-12] MEDS: oxyCODONE 5 MG Tablet 2.5 MG PO (22:22)
[2023-07-13 01:51] VITALS: BP 143/63; PULSE 68; RESP 14; TEMP 36.6; O2SAT 100
[2023-07-13] MEDS: oxyCODONE 5 MG Tablet 2.5 MG PO ×2 (01:52→08:42)
[2023-07-13] MEDS: Acetaminophen 500 MG Tablet 1000 MG PO ×2 (05:16→14:15)
[2023-07-13 08:33] VITALS: BP 133/77; PULSE 70; RESP 16; TEMP 36.8; O2SAT 100
[2023-07-13] MEDS: azaTHIOprine 50 MG Tablet PO (08:43)
[2023-07-13] MEDS: Aspirin 81 MG TAB.CHEW PO (08:43)
[2023-07-13] MEDS: Potassium Chloride Oral Tablet 20 MEQ PO (08:43)
[2023-07-13] MEDS: hydroCHLOROthiazide 25 MG Tablet PO (08:44)
[2023-07-13] MEDS: amLODIPine 5 MG Tablet PO (08:44)
[2023-07-13] MEDS: Atorvastatin Calcium 20 MG Tablet PO (08:44)
[2023-07-13] MEDS: Pantoprazole Sodium 40 MG Tablet PO (08:44)
[2023-07-13] MEDS: Ursodiol 250 MG Tablet PO (08:45)
[2023-07-13] MEDS: Senna/Docusate Sodium 1 Tablet 2 TABLET PO (08:45)
--- NOTE | 2023-07-13 09:15 | CASEMGMT ---
Discharge Planning A list of home health providers including quality and resource use data and consistent with the patient?s preferred geographic region, medical needs, and insurance network was created in [employer] Guide. This list was provided to the RN ARIELLA. Anusha Stevens, Discharge Planning Asst.
[2023-07-13] MEDS: Ondansetron 4 MG/2 ML Vial IV (10:29)
--- NOTE | 2023-07-13 10:38 | CASEMGMT ---
Discussed pt therapy session with therapist. DENILSON CM into pt room, pt states she was not able to secure any help for at home. If she goes home, she would be alone. She has no one who can assist her with ADL's/IADL's. Pt is agreeable to go to SNF. Patient was provided a list of SNF providers including quality and resource use data and consistent with the patient?s preferred geographic region, medical needs, and insurance network were provided from the [employer] Guide. Pt has chosen [facility] as first choice and [facility] as second choice. Updated SW. Pt is aware that her insurance will need to authorize this stay. She states she is unable to pay privately if they do not.
--- NOTE | 2023-07-13 10:47 | CASEMGMT ---
Addendum entered by Tracy Polanco 07/13/23 13:32: Social Work SW spoke with Elana in TCU. TCU is able to accept pt and precert has been obtained. SW faxed discharged orders to TCU. SW met with pt and updated on d/c plan and pt is appreciative of information and agreeable to d/c to TCU. With pt permission, phone call to pt's brother Isidro ([phone]) and updated on dc plan. Nursing updated. Disposition: TCU, skilled level of care FAYE Meeks Original Note: Social Work SW received referral from RNCM that pt is requesting to go to 1. T[address] Referral made to Elana in TCU. SW will await determination of acceptance. Plan: TCU, pending acceptance and precert [facility]AYE Meeks
--- NOTE | 2023-07-13 12:40 | PCM.PN.ORT ---
Subjective Subjective Patient sitting at bedside. States her pain has been very well managed. Denies any chest pain, shortness of breath, calf pain, nausea vomiting. Has no other complaints at this time. Objective Data Objective Data Vital Signs: Vital Signs Temp Pulse Resp BP Pulse Ox O2 Del Method O2 Flow Rate 98.2 F 70 16 133/77 H 100 Room Air 2 07/13/23 08:33 07/13/23 08:33 07/13/23 08:33 07/13/23 08:33 07/13/23 08:33 07/13/23 09:14 07/11/23 12:15 Oxygen Flow Rate (L/min) 2 Oxygen Delivery Method Room Air Weight: 58 kg Body Mass Index (BMI) 22.6 Intake & Output: Intake and Output for Last 24 Hours 07/11/23 07/12/23 07/13/23 23:59 23:59 23:59 Intake Total 3429.92 / 3429.92 1300 / 2100 1000 / 1000 Output Total 900 / 900 Balance 3429.92 / 3429.92 400 / 1200 1000 / 1000 Lab / Micro Data 07/12/23 06:45 07/12/23 06:45 Micro: Microbiology 06/28/23 12:44 Swab (Method) Nasal Screen MRSA/MSSA - Final Physical Exam Narrative Exam, I found patient sitting at bedside in the chair. Patient in no respiratory distress speaking full sentences. Patient is full range of motion upper extremities good muscle tone and strength. The dressing of the right hip is clean dry intact. Patient is good flexion-extension of bilateral knees ankles and feet. No calf tenderness bilaterally. Const alert and oriented x3 General Appearance: cooperative HEENT normocephalic Eyes PERRL Resp normal respiratory effort Effort and Inspection: able to speak in complete sentences Extremity normal capillary refill Skin no rashes or lesions noted Neuro CN's II-XII intact bilaterally Psych mental status grossly normal and affect normal Assessment & Plan Assessment/Plan (1) S/P total right hip arthroplasty: PLAN: 1. Continue all pain medications as prescribed 2. Aspirin 81 mg 1 p.o. every 12 hours x30 days for postop DVT prophylaxis 3. Encourage incentive spirometry 4. Weight-bear as tolerated with walker 5. Continue ice to right hip 6. Change dressing in 8 days. 7. Remove twila 07/25/2023 8. Follow-up in 2 weeks with Erasmo Richardson PA-C
--- NOTE | 2023-07-13 12:47 | DCINST_ITS ---
Discharge Instructions Diet Discharge Diet: No restrictions Activity Discharge Activity: May Not Drive, May Shower and Use Walker May shower in (days): 3 May resume sexual activity in: No Restrictions Ice area for (Minutes): 30 Weight Bearing Status: Weight bearing as tolerated Dressing / Incision Call your doctor if your incision/area has: Continuous Slow Oozing, Sudden Increased Bleeding, Increased Pain/ Swelling, Increased Redness, Foul Smelling Discharge and Swelling at the incision site Call your doctor if you observe: Fever of 101 or Higher Change Dressing in: 1 week Follow Up Care Please Follow Up With: Scott Richardson PA-C When: 2 weeks as scheduled Test Results: Test results from this visit will be discussed in further detail at your follow- up appointment, if applicable. Discharge Plan Admission Admit Date/Time: 07/11/23 15:53 Primary Reason for Your Visit: Right total hip arthroplasty Attending Provider: Pete Rowland Primary Care Provider: Marisela Hollis NP Discharge Orders/Prescriptions Prescriptions: New acetaminophen 500 mg Tablet 1,000 mg PO Q8 30 Days Qty: 180 0RF aspirin 81 mg Tablet,Chewable 81 mg PO BIDCM 30 Days Qty: 60 0RF oxycodone 5 mg Tablet 2.5 mg PO Q4H PRN PRN (Reason: Pain Score 4-10) 7 Days Qty: 56 0RF Continued atorvastatin 20 mg tablet 20 mg PO DAILY omeprazole 40 mg capsule,delayed release(DR/EC) 40 mg PO DAILY amlodipine 5 MG tablet 5 mg PO DAILY hydrochlorothiazide 25 MG tablet 25 mg PO DAILY valacyclovir 500 mg tablet 500 mg PO DAILY Patient Comments: TAKE 1 TABLET BY MOUTH DAILY WITH PLENTY OF WATER potassium chloride 20 mEq tablet extended release 20 meq PO BID azathioprine 50 mg tablet 50 mg PO BID ursodiol 250 mg tablet 250 mg PO BID Referrals / Follow Up: Marisela Hollis NP, [employer] [Primary Care Provider] -
--- NOTE | 2023-07-13 13:39 | CASEMGMT ---
Social Work SW spoke with pt regarding advance directives. Pt states she believes she has completed this and that her dgt Marga is HCPOA. SW notified that documents are not on file and requested they be brought in for scanning into the EMR. FAYE Meeks
[2023-07-13 14:03] VITALS: BP 142/74; PULSE 74; RESP 16; TEMP 36.6; O2SAT 100
== END 2023-07-13 15:23 | disposition skilled nursing facility (03) ==
LOC: SDC 16:16 → MS3 16:18
PROVIDERS: Anesthesiology; Admitting Provider Orthopaedic Surgery; PCP Nurse Practitioner Primary Care; Referring Provider Orthopaedic Surgery; Visit Provider Orthopaedic Surgery
PROC: 0SR90JZ Replacement of Right Hip Joint with Synthetic Substitute, Open Approach (ICD-10-PCS; CPT 27130; principal; 2023-07-11 07:05)
DX: M16.11 Unilateral primary osteoarthritis, right hip (principal); E11.9 Type 2 diabetes mellitus without complications; I10 Essential (primary) hypertension; E78.5 Hyperlipidemia, unspecified; K21.9 Gastro-esophageal reflux disease without esophagitis; Z79.899 Other long term (current) drug therapy
CPT/HCPCS: 27130; 01214; 36415; 73502; 80048; 82962; 83036; 83735; 85027; 87081; 88305; 88311; 93005; 94668; 96365; 96366; 96375; 97110; 97116; 97162; 97166; 97530; 97535; 99221; 99252; C1776; J7120; G0378; G0463; J2405; J3475

== ENCOUNTER 2023-07-13 15:42 | Inpatient (IN) | payer MEDICARE, SELFPAY ==
[2023-07-13 16:27] VITALS: BMI 23.6
[2023-07-13 16:35] VITALS: BP 131/68; PULSE 80; RESP 14; TEMP 36.5; O2SAT 99
[2023-07-13] MEDS: Aspirin 81 MG TAB.CHEW PO (18:12)
[2023-07-13] MEDS: azaTHIOprine 50 MG Tablet PO (18:12)
--- NOTE | 2023-07-13 20:12 | HP.PCM_ITS ---
[facility] - General General Date of Admission: 07/13/23 Date of Service: 07/13/23 Chief Complaint: Here for rehabilitation. [facility] Narrative CELINE NEWTON, is a 72 Female who presents with followin07/11/2023 Dr. Rowland performed right total hip replacement. 07/12/2023 Pain controlled, walked twice. Aspirin 81mg every 12 hours for 30 days for DVT prophylaxis. WBAT with walker. Patient requested placement for short term rehab because she lives alone. 07/13/2023 Staple removal 07/25/2023. 07/13/2023 Admit to TCU with debility, here for rehabilitation, strengthening, prior to discharge home alone. [facility] Medical History (Updated 07/13/23 @ 20:[address] Nickolas Gautam MD) Adrenal nodule Arthritis Back pain Diabetes Dietary restriction Elevated liver enzymes GERD (gastroesophageal reflux disease) History of edema History of pain when walking History of ulceration HTN (hypertension) Hx of blood diseases Hyperlipidemia Hypokalemia Leg cramps Liver disease Migraine headache Nausea Non-smoker Osteoporosis Pelvic pain Post-menopausal Shortness of breath on exertion Thyroid nodule Wears glasses Wears partial dentures Home Medications amlodipine 5 mg tablet 5 mg PO DAILY BP 01/16/19 [History Last Taken 07/13/23 08:45] hydrochlorothiazide 25 mg tablet 25 mg PO DAILY BP 01/16/19 [History Last Taken 07/13/23 08:45] atorvastatin 20 mg tablet 20 mg PO DAILY CHOLESTEROL 06/16/22 [History Last Taken 07/13/23 08:45] omeprazole 40 mg capsule,delayed release 40 mg PO DAILY GERD 06/16/22 [History Last Taken 07/13/23 08:45] azathioprine 50 mg tablet 50 mg PO BID LIVER 06/21/23 [History Last Taken 07/13/23 08:30] potassium chloride 20 mEq tablet,extended release 20 meq PO BID SUPPLEMENT 06/21/23 [History Last Taken 07/13/23 08:45] ursodiol 250 mg tablet 250 mg PO BID LIVER 06/21/23 [History Last Taken 07/13/23 08:45] valacyclovir 500 mg tablet 500 mg PO DAILY COLD SORE 06/21/23 [History Last Taken Unknown] acetaminophen 500 mg tablet 1,000 mg (2 x 500 mg) PO Q8 Pain 30 days #180 tabs 07/13/23 [Rx Last Taken 07/13/23 05:15] aspirin 81 mg chewable tablet 81 mg PO BIDCM Postop DVT prophylaxis 30 days #60 tabs 07/13/23 [Rx Last Taken 07/13/23 08:45] oxycodone 5 mg tablet 2.5 mg (1/2 x 5 mg) PO Q4H PRN PRN Pain Score 4-10 7 days #56 tabs 07/13/23 [Rx Last Taken 07/13/23 08:45] Allergy/AdvReac Type Severity Reaction Status Date / Time Estrogens AdvReac Other Verified 07/11/23 06:06 Family History Father Alzheimer disease Mother Diabetes Hypertension Heart disease CVA (cerebral vascular accident) Sister Breast cancer Heart disease Surgical History History of bunionectomy History of cholecystectomy Hx of colonoscopy Hx of foot surgery Hx of left cataract extraction Hx of right cataract extraction Hx of tooth extraction Hx of tubal ligation Social History (Updated 07/13/23 @ 20:[address] Nickolas Gautam MD) household members: none Smoking Status: Never smoker alcohol intake: never substance use type: does not use ROS Constitutional Constitutional: Denies chills, fever(s) or weight gain ENT HEENT: Denies headache(s), nasal congestion or nasal discharge Cardiovascular Cardiovascular: Denies chest pain or palpitations Respiratory/Chest Respiratory/Chest: Denies cough, excessive phlegm production or shortness of breath with exertion Gastrointestinal Gastrointestinal: Denies abdominal pain, nausea or vomiting Genitourinary Genitourinary: Denies dysuria Musculoskeletal Musculoskeletal: Denies joint pain or joint swelling Integumentary Integumentary: Denies rash or wounds Neurologic Neurologic: Denies focal weakness, numbness or tingling Psychiatric Psychiatric: Denies anxiety, auditory hallucinations, depression, homicidal ideation or suicidal ideation Vital Signs Vital Signs Vital Signs: 07/13/23 16:35 07/13/23 16:27 Temperature 97.7 F L Temperature Source Temporal Pulse Rate 80 Pulse Rhythm Regular Pulse Strength Normal (2+) Respiratory Rate 14 Respiratory Effort Normal Non-Labored Respiratory Depth Normal Respiratory Pattern Normal Blood Pressure 131/68 H Blood Pressure Mean 89 Blood Pressure Source Monitor Blood Pressure Position Semi-Fowlers Blood Pressure Location Left Arm Pulse Ox 99 Oxygen Delivery Method Room Air Room Air Weight Weight: 60.555 kg Body Mass Index (BMI) 23.6 Physical Exam Const alert General Appearance: cooperative HEENT normocephalic Eyes PERRL and EOMs intact bilaterally Neck supple, no JVD and no carotid bruits Resp normal respiratory effort, normal air movement and clear to auscultation bilaterally Cardio regular rate and regular rhythm GI normal to inspection, nondistended, normoactive bowel sounds, non-tender and non-distended Extremity normal capillary refill General Extremity: Negative for edema Skin no rashes or lesions noted General Skin Exam: no breakdown Psych affect normal Appearance: appropriate Assessment & Plan Assessment/Plan (1) S/P total right hip arthroplasty: (2) Debility: (3) Cirrhosis: (4) Autoimmune hepatitis: (5) Primary biliary cirrhosis: (6) HTN (hypertension): (7) Hyperlipidemia: (8) GERD (gastroesophageal reflux disease): (9) Hypokalemia: PLAN: Plan 72 year old female with below past medical history underwent right total hip replacement 07/11/[address] Rowland, admitted to TCU with debility, here for rehabilitation, strengthening, prior to discharge home alone. * Debility - PT/OT. * Pain - Tylenol 1000mg q8, Oxycodone 2.5mg q4h prn pain (4-10). * Bowel - senna/colace 1 tablet bid prn. * Adult immunization - Administer pneumonia vaccine, covid19 vaccine, flu vaccine as appropriate. * DVT prophylaxis - Aspirin 81mg bid thru 08/12/2023. * Hypertension - Amlodipine 5mg daily, HCTZ 25mg daily. * Hyperlipidemia - Atorvastatin 20mg qhs. * Autoimmune Hepatitis - Imuran 50mg bidcm. * GERD - Pantoprazole 40mg daily. * Hypokalemia - KCL 20meq bid. * Primary biliary cirrhosis - Ursodiol 250mg bid.
[2023-07-13] MEDS: Acetaminophen 500 MG Tablet 1000 MG PO (21:40)
[2023-07-13] MEDS: Atorvastatin Calcium 20 MG Tablet PO (21:41)
[2023-07-13] MEDS: Potassium Chloride Oral Tablet 20 MEQ PO (21:41)
[2023-07-13] MEDS: Ursodiol 250 MG Tablet PO (21:41)
[2023-07-13] MEDS: oxyCODONE 5 MG Tablet 2.5 MG PO (21:41)
[2023-07-14] MEDS: oxyCODONE 5 MG Tablet 2.5 MG PO ×4 (04:18→22:29)
[2023-07-14] MEDS: Acetaminophen 500 MG Tablet 1000 MG PO ×3 (04:20→22:34)
[2023-07-14 04:35] VITALS: BP 144/70; PULSE 68; RESP 16; TEMP 36.9; O2SAT 99
[2023-07-14 05:59] LABS: Absolute Lymphocyte Count 1.01 X10^3/uL (0.83-4.51); Absolute Neutrophil Count 4.3 X10^3/uL (2.0-7.7); Basophil# 0.03 X10^3/uL; Basophil% 0.5 % (0-1); Eosinophil# 0.12 X10^3/uL; Hemoglobin 10.2 g/dL (12.0-15.0); Lymphocyte # 1.01 X10^3/ul (0.83-4.51); Lymphocyte % 16.6 % (19-41); Mean Corp Hgb Conc 32.9 g/dL (32-36); Mean Corpuscular Hgb 29.9 pg (27.0-32.0); Mean Corpuscular Volume 90.9 fL (81-99); Monocyte# 0.58 X10^3/uL; Monocyte% 9.5 % (0-10); NRBC Flagged by Analyzer 0 % (0-5); Neutrophil # 4.32 X10^3/uL (2.7-7.7); Neutrophil % 70.7 % (47-70); Platelet Count 128 K/mm3 (150-450); RBC Distribution Width CV 15.9 % (11.6-14.6); RBC Distribution Width SD 52.8 fl (35.1-43.9); Red Blood Count 3.41 M/mm3 (4.2-5.4); White Blood Count 6.1 K/mm3 (4.4-11.0)
[2023-07-14 06:23] LABS: Anion Gap 3 (5-15); BUN 10 mg/dL (7-18); Calcium,Total 8.8 mg/dL (8.5-10.1); Chloride 106 mmol/L (98-107); Creatinine, Serum 0.66 mg/dL (0.55-1.02); EST Glomerular Filtration Rate 92 mL/min (>60); Est Glom Filt Rate - Afr Amer 111 mL/min (>60); Estimated Creatinine Clearance 40.83 ml/min; Glucose 117 mg/dL (74-106); Potassium 3.9 mmol/L (3.5-5.1); Sodium Level 140 mmol/L (136-145)
--- NOTE | 2023-07-14 07:41 | NURSING ---
pt off unit to ER for epistaxis, dr quiles aware. aspirin dc'd at this time.
--- NOTE | 2023-07-14 10:25 | PCM.PN.DRR ---
TCU RX Drug Regimen Review Subjective/Objective Subjective/Objective: Subjective: 72 YOF admitted to TCU 07/13/23 S/P hospitalization at [facility] for a R-hip replacement. Patient admitted to TCU for rehabilitation prior to discharge home where she lives alone. Objective: Allergies Estrogens Adverse Reaction (Verified 07/14/23 07:51) Other I don't remember it was back in the day Current Medications Generic Name Dose Route Start Last Admin Trade Name Freq PRN Reason Stop Dose Admin Acetaminophen 1,000 mg 07/13/23 22:00 07/14/23 04:20 Acetaminophen 500 Mg Tablet PO 1,000 mg Q8 LATASHA Administration Amlodipine Besylate 5 mg 07/14/23 10:00 Amlodipine 5 Mg Tablet PO DAILY LATASHA Atorvastatin Calcium 20 mg 07/13/23 22:00 07/13/23 21:41 Atorvastatin Calcium 20 Mg Tablet PO 20 mg QHS LATASHA Administration Azathioprine 50 mg 07/13/23 17:00 07/13/23 18:12 Azathioprine 50 Mg Tablet PO 50 mg BIDCM LATASHA Administration Hydrochlorothiazide 25 mg 07/14/23 10:00 Hydrochlorothiazide 25 Mg Tablet PO DAILY LATASHA Oxycodone HCl 2.5 mg 07/13/23 16:05 07/14/23 04:18 Oxycodone 5 Mg Tablet PO 2.5 mg Q4H PRN PRN Administration Pain Score 4-10 Pantoprazole Sodium 40 mg 07/14/23 10:00 Pantoprazole Sodium 40 Mg Tablet PO DAILY LATASHA Potassium Chloride 20 meq 07/13/23 22:00 07/13/23 21:41 Potassium Chloride Oral Tablet 20 Meq PO 20 meq BID LATASHA Administration Senna/Docusate Sodium 1 tablet 07/13/23 20:23 Senna/Docusate Sodium 1 Tablet PO BID PRN Constipation Sodium Chloride 10 - 40 ml 07/13/23 16:50 0.9% Saline Lock 10 Ml Syringe IV UD PRN SALINE FLUSH Tuberculin PPD 0.1 ml 07/21/23 10:00 Tuberculin,Purif.Prot.Deriv. 50 Tu/Ml Vial ID 07/21/23 10:01 X1 ONE Ursodiol 250 mg 07/13/23 22:00 07/13/23 21:41 Ursodiol 250 Mg Tablet PO 250 mg BID LATASHA Administration Problem List (Updated 07/14/23 @ 10:[address] Lizbeth Ansari MD) Hypokalemia (Acute) GERD (gastroesophageal reflux disease) (Acute) Hyperlipidemia (Acute) HTN (hypertension) (Chronic) Debility (Acute) S/P total right hip arthroplasty (Acute) Cirrhosis (Chronic) Autoimmune hepatitis (Chronic) Primary biliary cirrhosis (Chronic) Vital Signs Temp Pulse Resp BP Pulse Ox O2 Del Method 98.4 F 68 16 144/70 H 99 Room Air 07/14/23 04:35 07/14/23 04:35 07/14/23 04:35 07/14/23 04:35 07/14/23 04:35 07/14/23 04:35 Oxygen Delivery Method Room Air Weight: 60.555 kg Body Mass Index (BMI) 23.6 Sodium 140 mmol/L (136-145) 07/14/23 05:22 Potassium 3.9 mmol/L (3.5-5.1) 07/14/23 05:22 Chloride 106 mmol/L (98-107) 07/14/23 05:22 Carbon Dioxide 31.0 mmol/L (21.0-32.0) 07/14/23 05:22 Anion Gap 3 (5-15) L 07/14/23 05:22 BUN 10 mg/dL (7-18) 07/14/23 05:22 Creatinine 0.66 mg/dL (0.55-1.02) 07/14/23 05:22 Est GFR (MDRD) Af Amer 111 mL/min (>60) 07/14/23 05:22 Est GFR (MDRD) Non-Af 92 mL/min (>60) 07/14/23 05:22 BUN/Creatinine Ratio 15.0 RATIO (10-20) 07/14/23 05:22 Glucose 117 mg/dL (74-106) H 07/14/23 05:22 Assessment/Plan: 1. Pain: Tylenol 1000mg PO Q8h, Oxycodone 2.5mg PO Q4h PRN Pain 4-10. Please continue to monitor for increased/decreased S/S pain, PRN medication usage, oversedation with narcotic usage. -The patient has had 2 doses of oxycodone since admission. Pre-med pain score rated 6-8, post-med pain assessment rated at 0. Patient's pain appears to be managed. 2. DVT Prophylaxis post surgery: Patient was on aspirin, but was seen in ED for nosebleed. Aspirin was discontinued. Please continue to monitor patient closely for S/S clot development given recent surgery. 3. HTN/HLD: Norvasc 5mg PO Daily, Lipitor 20mg PO QHS, Hydrochlorothiazide 25mg PO Daily. Please continue to monitor BP (152/89), S/S lower extremity swelling/edema, electrolytes (WNL on 07/14), lipid panel annually or sooner if clinically indicated 4. Autoimmune hepatitis/ biliary cirrhosis: Azathioprine 50mg PO BID, Ursodiol 250mg PO BID. Please continue to monitor for leukopenia (WBC 6.1 on 07/14) AST/ALT (15/15 on 03/09), LFTs. 5. GERD: Protonix 40mg PO Daily. Please continue to monitor for S/S GERD flare-up, headache, upset stomach, Mg levels (WNL 07/06). Please also encourage patient to utilize non-pharmacologic therapies to help minimize GERD exacerbations. 6. Hypokalemia: KCl 20mEq PO BID. Please continue to monitor potassium levels (3.9 on 07/14), stomach upset, N/V. 7. Bowel: Senna-S 1 tab PO BID PRN. Please continue to monitor for increased/decreased constipation and/or diarrhea. -The patient has not had a BM yet since admission. Pt admitted <48hrs. If no BM in 48hrs, consider giving PRN medication. Assessment/Plan for indications treated with psychotropic medications: -The patient is not currently on any psychotropic medications at time of medication list review. Medical chart and medication regimen reviewed. The following medication irregularities or issues were identified: 1. The patient does not have a lipid panel on file and is on medications for HLD. Please consider obtaining a lipid panel if clinically indicated, thank you. Date Date of Note:: 07/14/23
[2023-07-14] MEDS: Ursodiol 250 MG Tablet PO ×2 (10:46→22:30)
[2023-07-14] MEDS: Potassium Chloride Oral Tablet 20 MEQ PO ×2 (10:46→22:30)
[2023-07-14] MEDS: Pantoprazole Sodium 40 MG Tablet PO (10:46)
[2023-07-14] MEDS: amLODIPine 5 MG Tablet PO (10:46)
[2023-07-14] MEDS: azaTHIOprine 50 MG Tablet PO ×2 (10:46→17:31)
[2023-07-14] MEDS: hydroCHLOROthiazide 25 MG Tablet PO (10:46)
[2023-07-14] MEDS: Tuberculin,Purif.prot.deriv. 50 TU/ML Vial 0.1 ML ID (10:48)
[2023-07-14 10:52] VITALS: BP 142/67; PULSE 75; RESP 16; TEMP 36.5; O2SAT 99
--- NOTE | 2023-07-14 10:59 | NURSING ---
1040 pt returned from ER with packing to RT nare. vitals stable, call light in reach. pleasant and cooperative.
[2023-07-14] MEDS: 0.9% Saline Lock 10 ML Syringe IV (12:16)
--- NOTE | 2023-07-14 15:42 | CASEMGMT ---
Social Work Met with patient to complete initial assessment. Introduced self and role. Verified contacts. Discussed patient's code status - confirms full code. Educated to [facility] insurance with [employer] 07/20, noting copays begin on day 21 at $196/day; continued stay is not guaranteed with each review. Pt's goal is to return home alone at [facility]. Pt has limited physical support. SW will continue to follow for DC planning. Lori Greenberg, CAMP HEAD COUNSELOR FARM CREW LEADER
[2023-07-14 20:00] VITALS: PULSE 85; RESP 16; O2SAT 98
[2023-07-14] MEDS: Atorvastatin Calcium 20 MG Tablet PO (22:30)
[2023-07-15 05:52] LABS: Absolute Lymphocyte Count 1.02 X10^3/uL (0.83-4.51); Absolute Neutrophil Count 3.3 X10^3/uL (2.0-7.7); Basophil# 0.03 X10^3/uL; Basophil% 0.6 % (0-1); Hematocrit 27.9 % (37-47); Hemoglobin 9.4 g/dL (12.0-15.0); Lymphocyte # 1.02 X10^3/ul (0.83-4.51); Lymphocyte % 20.4 % (19-41); Mean Corp Hgb Conc 33.7 g/dL (32-36); Mean Corpuscular Hgb 30.1 pg (27.0-32.0); Mean Corpuscular Volume 89.4 fL (81-99); Mean Platelet Vol. 11.3 fl (6.2-12.0); Monocyte# 0.46 X10^3/uL; Monocyte% 9.2 % (0-10); NRBC Flagged by Analyzer 0 % (0-5); Neutrophil # 3.33 X10^3/uL (2.7-7.7); Neutrophil % 66.8 % (47-70); POSITIVE COUNT YES; Platelet Count 106 K/mm3 (150-450); RBC Distribution Width CV 15.9 % (11.6-14.6); RBC Distribution Width SD 52.4 fl (35.1-43.9); Red Blood Count 3.12 M/mm3 (4.2-5.4)
[2023-07-15 05:57] LABS: Differential Indicated SCAN CRITERIA MET
[2023-07-15 06:14] LABS: Anion Gap 5 (5-15); BUN 12 mg/dL (7-18); BUN/Creat Ratio 16.8 RATIO (10-20); Calcium,Total 8.8 mg/dL (8.5-10.1); Chloride 105 mmol/L (98-107); Creatinine, Serum 0.71 mg/dL (0.55-1.02); EST Glomerular Filtration Rate 85 mL/min (>60); Est Glom Filt Rate - Afr Amer 103 mL/min (>60); Estimated Creatinine Clearance 40.83 ml/min; Glucose 117 mg/dL (74-106); Sodium Level 139 mmol/L (136-145)
[2023-07-15 06:34] LABS: Differential Comment SCANNED; Platelet Estimate SLT DEC (ADEQ)
[2023-07-15] MEDS: Acetaminophen 500 MG Tablet 1000 MG PO ×3 (06:47→21:42)
[2023-07-15] MEDS: 0.9% Saline Lock 10 ML Syringe IV ×2 (06:54→09:33)
[2023-07-15] MEDS: oxyCODONE 5 MG Tablet 2.5 MG PO (06:55)
--- NOTE | 2023-07-15 08:37 | NURSING ---
Called and spoke with Dr. Bro' staff, scheduled appt for 07/20 @3pm. Since she had been on aspirin they need to wait at least 5 days to see her. Patient updated. She says family can provide transport.
[2023-07-15] MEDS: hydroCHLOROthiazide 25 MG Tablet PO (09:31)
[2023-07-15] MEDS: amLODIPine 5 MG Tablet PO (09:31)
[2023-07-15] MEDS: Ursodiol 250 MG Tablet PO ×2 (09:31→21:44)
[2023-07-15] MEDS: Pantoprazole Sodium 40 MG Tablet PO (09:31)
[2023-07-15] MEDS: azaTHIOprine 50 MG Tablet PO ×2 (09:31→17:22)
[2023-07-15] MEDS: Potassium Chloride Oral Tablet 20 MEQ PO ×2 (09:31→21:42)
[2023-07-15] MEDS: oxyCODONE 5 MG Tablet PO ×3 (09:50→21:41)
[2023-07-15] MEDS: Ondansetron ODT 4 MG Tablet 8 MG PO (09:52)
[2023-07-15 10:00] VITALS: PULSE 76; RESP 14; O2SAT 97
--- NOTE | 2023-07-15 12:22 | NURSING ---
Production Team Leader Note; Activity Asset: Rony Alejo is independent in her choice of daily activities. She will watch tv, read, work on word search and visit w/family and friends. She welcomes visit from the soil fertility specialist and therapy dog when available. When felling better she would be interested in bingo. Staff will remind her of daily activities and respect her right to say no.
[2023-07-15 15:50] VITALS: BP 121/67; PULSE 77; RESP 17; TEMP 36.1; O2SAT 100
--- NOTE | 2023-07-15 17:47 | NS ---
Res food dislikes - can't name - likes most everything MST score = 3. Provided copy of daily specials/first choice menu w/ instructions on how to order.
[2023-07-15] MEDS: Senna/Docusate Sodium 1 Tablet PO (21:41)
[2023-07-15] MEDS: Atorvastatin Calcium 20 MG Tablet PO (21:43)
[2023-07-16] MEDS: oxyCODONE 5 MG Tablet PO ×3 (05:53→22:04)
[2023-07-16] MEDS: Acetaminophen 500 MG Tablet 1000 MG PO ×3 (05:53→22:04)
[2023-07-16 07:00] LABS: Absolute Lymphocyte Count 0.96 X10^3/uL (0.83-4.51); Absolute Neutrophil Count 2.6 X10^3/uL (2.0-7.7); Basophil# 0.03 X10^3/uL; Basophil% 0.7 % (0-1); Eosinophil# 0.13 X10^3/uL; Eosinophils% 3.1 % (0-5); Hematocrit 30.1 % (37-47); Hemoglobin 9.6 g/dL (12.0-15.0); Lymphocyte # 0.96 X10^3/ul (0.83-4.51); Lymphocyte % 22.7 % (19-41); Mean Corp Hgb Conc 31.9 g/dL (32-36); Mean Corpuscular Hgb 29.4 pg (27.0-32.0); Mean Platelet Vol. 11.4 fl (6.2-12.0); Monocyte# 0.48 X10^3/uL; Monocyte% 11.4 % (0-10); NRBC Flagged by Analyzer 0 % (0-5); Neutrophil # 2.57 X10^3/uL (2.7-7.7); Neutrophil % 60.9 % (47-70); Platelet Count 164 K/mm3 (150-450); RBC Distribution Width CV 16.1 % (11.6-14.6); Red Blood Count 3.27 M/mm3 (4.2-5.4); White Blood Count 4.2 K/mm3 (4.4-11.0)
[2023-07-16 07:45] LABS: Anion Gap 5 (5-15); BUN 14 mg/dL (7-18); BUN/Creat Ratio 19.9 RATIO (10-20); Chloride 105 mmol/L (98-107); EST Glomerular Filtration Rate 86 mL/min (>60); Est Glom Filt Rate - Afr Amer 104 mL/min (>60); Estimated Creatinine Clearance 40.83 ml/min; Glucose 101 mg/dL (74-106); Potassium 4.5 mmol/L (3.5-5.1); Sodium Level 139 mmol/L (136-145)
[2023-07-16] MEDS: Ondansetron ODT 4 MG Tablet 8 MG PO (07:55)
[2023-07-16] MEDS: hydroCHLOROthiazide 25 MG Tablet PO (07:59)
[2023-07-16] MEDS: amLODIPine 5 MG Tablet PO (07:59)
[2023-07-16] MEDS: azaTHIOprine 50 MG Tablet PO ×2 (07:59→17:54)
[2023-07-16] MEDS: Potassium Chloride Oral Tablet 20 MEQ PO ×2 (07:59→22:04)
[2023-07-16] MEDS: Pantoprazole Sodium 40 MG Tablet PO (08:00)
[2023-07-16] MEDS: Ursodiol 250 MG Tablet PO ×2 (08:00→22:04)
[2023-07-16 10:00] VITALS: PULSE 79; RESP 16; O2SAT 98
[2023-07-16 14:58] VITALS: BP 118/59; PULSE 84; RESP 18; TEMP 36.7; O2SAT 99
--- NOTE | 2023-07-16 15:35 | RAD_ITS ---
STUDY: X-RAY CHEST REASON FOR EXAM: Female, 72 years old. Positive TB test TECHNIQUE: PA and lateral views of the chest. COMPARISON: 10/16/2022 FINDINGS: No plain film evidence of active or latent TB The lungs are clear and expanded. There is no demonstrated pleural abnormality. Normal size heart. Normal mediastinum and melina. Normal visualized pulmonary arteries. Normal visualized aortic arch and descending thoracic aorta. Normal visualized thoracic spine. Normal visualized ribs, clavicles, and shoulders. There is no demonstrated abnormality of the visualized soft tissue structures of the upper abdomen. RAD/Chest PA and Lateral IMPRESSION: Normal x-ray examination of the chest. Electronically Signed: Eugenio Awan MD at 16:37 EDT ,
[2023-07-16] MEDS: Atorvastatin Calcium 20 MG Tablet PO (22:04)
--- NOTE | 2023-07-17 01:00 | NURSING ---
C/o nasal congestion. Rhino Rocket in right nare. Contacted Dr. Gautam, new orders received. Patient remains in airborne precautions. Will continue to monitor.
[2023-07-17] MEDS: Acetaminophen 500 MG Tablet 1000 MG PO ×3 (06:17→22:48)
[2023-07-17 06:46] LABS: Absolute Lymphocyte Count 0.84 X10^3/uL (0.83-4.51); Absolute Neutrophil Count 2.4 X10^3/uL (2.0-7.7); Basophil# 0.02 X10^3/uL; Basophil% 0.5 % (0-1); Eosinophil# 0.12 X10^3/uL; Eosinophils% 3.1 % (0-5); Hematocrit 26.8 % (37-47); Hemoglobin 8.9 g/dL (12.0-15.0); Lymphocyte # 0.84 X10^3/ul (0.83-4.51); Lymphocyte % 21.6 % (19-41); Mean Corp Hgb Conc 33.2 g/dL (32-36); Mean Corpuscular Hgb 30.1 pg (27.0-32.0); Mean Corpuscular Volume 90.5 fL (81-99); Mean Platelet Vol. 10.8 fl (6.2-12.0); Monocyte% 12.9 % (0-10); NRBC Flagged by Analyzer 0 % (0-5); Neutrophil # 2.35 X10^3/uL (2.7-7.7); Neutrophil % 60.4 % (47-70); Platelet Count 194 K/mm3 (150-450); RBC Distribution Width CV 15.9 % (11.6-14.6); RBC Distribution Width SD 52.5 fl (35.1-43.9); Red Blood Count 2.96 M/mm3 (4.2-5.4); White Blood Count 3.9 K/mm3 (4.4-11.0)
[2023-07-17 07:08] LABS: Anion Gap 3 (5-15); BUN 15 mg/dL (7-18); BUN/Creat Ratio 19.9 RATIO (10-20); Calcium,Total 9.1 mg/dL (8.5-10.1); Chloride 105 mmol/L (98-107); Creatinine, Serum 0.75 mg/dL (0.55-1.02); EST Glomerular Filtration Rate 80 mL/min (>60); Est Glom Filt Rate - Afr Amer 96 mL/min (>60); Estimated Creatinine Clearance 40.83 ml/min; Glucose 105 mg/dL (74-106); Sodium Level 140 mmol/L (136-145)
[2023-07-17] MEDS: Loratadine 10 MG Tablet PO (10:49)
[2023-07-17] MEDS: azaTHIOprine 50 MG Tablet PO ×2 (10:50→16:59)
[2023-07-17] MEDS: hydroCHLOROthiazide 25 MG Tablet PO (10:50)
[2023-07-17] MEDS: Potassium Chloride Oral Tablet 20 MEQ PO ×2 (10:51→22:49)
[2023-07-17] MEDS: amLODIPine 5 MG Tablet PO (10:52)
[2023-07-17] MEDS: Pantoprazole Sodium 40 MG Tablet PO (10:52)
[2023-07-17] MEDS: Ursodiol 250 MG Tablet PO ×2 (10:52→22:48)
[2023-07-17] MEDS: oxyCODONE 5 MG Tablet PO ×2 (10:57→22:49)
[2023-07-17] MEDS: Ondansetron ODT 4 MG Tablet 8 MG PO (13:43)
[2023-07-17 17:46] VITALS: BP 124/66; PULSE 79; RESP 16; TEMP 36.9; O2SAT 99
[2023-07-17 22:00] VITALS: PULSE 91; RESP 16; O2SAT 98
[2023-07-17] MEDS: Atorvastatin Calcium 20 MG Tablet PO (22:49)
[2023-07-18] MEDS: oxyCODONE 5 MG Tablet PO ×3 (05:57→21:53)
[2023-07-18] MEDS: Acetaminophen 500 MG Tablet 1000 MG PO ×3 (05:57→20:13)
[2023-07-18 06:54] VITALS: PULSE 80; RESP 16; O2SAT 99
[2023-07-18 07:27] LABS: Absolute Lymphocyte Count 0.76 X10^3/uL (0.83-4.51); Absolute Neutrophil Count 2.8 X10^3/uL (2.0-7.7); Basophil# 0.03 X10^3/uL; Basophil% 0.7 % (0-1); Eosinophil# 0.13 X10^3/uL; Hematocrit 27.8 % (37-47); Hemoglobin 9.1 g/dL (12.0-15.0); Lymphocyte # 0.76 X10^3/ul (0.83-4.51); Lymphocyte % 17.4 % (19-41); Mean Corp Hgb Conc 32.7 g/dL (32-36); Mean Corpuscular Hgb 29.6 pg (27.0-32.0); Mean Corpuscular Volume 90.6 fL (81-99); Mean Platelet Vol. 10.4 fl (6.2-12.0); Monocyte# 0.53 X10^3/uL; Monocyte% 12.2 % (0-10); NRBC Flagged by Analyzer 0 % (0-5); Neutrophil # 2.84 X10^3/uL (2.7-7.7); Neutrophil % 65.1 % (47-70); Platelet Count 213 K/mm3 (150-450); RBC Distribution Width SD 53.4 fl (35.1-43.9); Red Blood Count 3.07 M/mm3 (4.2-5.4); White Blood Count 4.4 K/mm3 (4.4-11.0)
[2023-07-18 08:12] LABS: Anion Gap 6 (5-15); BUN 15 mg/dL (7-18); BUN/Creat Ratio 20.6 RATIO (10-20); Calcium,Total 9.1 mg/dL (8.5-10.1); Chloride 104 mmol/L (98-107); Creatinine, Serum 0.73 mg/dL (0.55-1.02); EST Glomerular Filtration Rate 83 mL/min (>60); Est Glom Filt Rate - Afr Amer 100 mL/min (>60); Estimated Creatinine Clearance 40.83 ml/min; Glucose 105 mg/dL (74-106); Potassium 4.2 mmol/L (3.5-5.1); Sodium Level 139 mmol/L (136-145)
[2023-07-18] MEDS: Senna/Docusate Sodium 1 Tablet PO (09:30)
[2023-07-18] MEDS: Ursodiol 250 MG Tablet PO ×2 (09:30→20:13)
[2023-07-18] MEDS: azaTHIOprine 50 MG Tablet PO ×2 (09:30→17:23)
[2023-07-18] MEDS: Pantoprazole Sodium 40 MG Tablet PO (09:30)
[2023-07-18] MEDS: Loratadine 10 MG Tablet PO (09:30)
[2023-07-18] MEDS: Potassium Chloride Oral Tablet 20 MEQ PO ×2 (09:30→20:12)
[2023-07-18] MEDS: amLODIPine 5 MG Tablet PO (09:37)
[2023-07-18] MEDS: hydroCHLOROthiazide 25 MG Tablet PO (09:37)
[2023-07-18] MEDS: Iron Polysaccharide Complex 150 MG CAPSULE PO (12:50)
[2023-07-18] MEDS: Ascorbic Acid 500 MG Tablet PO (12:50)
[2023-07-18 16:00] VITALS: BP 147/74; PULSE 76; RESP 14; TEMP 35.7; O2SAT 100
[2023-07-18] MEDS: Atorvastatin Calcium 20 MG Tablet PO (20:12)
[2023-07-19] MEDS: oxyCODONE 5 MG Tablet PO ×3 (04:00→20:45)
[2023-07-19 05:32] LABS: Hematocrit 29.7 % (37-47); Hemoglobin 9.9 g/dL (12.0-15.0)
[2023-07-19] MEDS: Acetaminophen 500 MG Tablet 1000 MG PO ×3 (06:01→20:45)
[2023-07-19] MEDS: Iron Polysaccharide Complex 150 MG CAPSULE PO (09:33)
[2023-07-19] MEDS: hydroCHLOROthiazide 25 MG Tablet PO (09:33)
[2023-07-19] MEDS: Potassium Chloride Oral Tablet 20 MEQ PO ×2 (09:33→20:45)
[2023-07-19] MEDS: Loratadine 10 MG Tablet PO (09:33)
[2023-07-19] MEDS: azaTHIOprine 50 MG Tablet PO ×2 (09:33→16:57)
[2023-07-19] MEDS: amLODIPine 5 MG Tablet PO (09:34)
[2023-07-19] MEDS: Ursodiol 250 MG Tablet PO ×2 (09:34→20:45)
[2023-07-19] MEDS: Pantoprazole Sodium 40 MG Tablet PO (09:34)
[2023-07-19] MEDS: Ascorbic Acid 500 MG Tablet PO (09:34)
--- NOTE | 2023-07-19 09:58 | NURSING ---
dr Cottrell assessed pt, ok to remove from precautions. No active TB
--- NOTE | 2023-07-19 10:24 | PCM.CONS.GEN ---
Assessment & Plan Assessment/Plan (1) Cirrhosis: (2) Latent tuberculosis: PLAN: CXR clear, no symptoms active TB, no known exposure history. PPD over 15mm induration. Counseled her re: latent TB and risks of treatment vs reactivation, particularly given her liver disease will try to avoid antibiotics. Recommend monitoring for weight loss, night sweats, and hemoptysis snf. No need for further TB testing. Could consider yearly cxr as an outpt. Will follow as needed, thank you, d/w nursing, ok to d/c isolation. HPI Consult Data Date of Consult: 07/19/23 HPI Narrative Reason for Consultation: (+) PPD HPI Narrative: CELINE NEWTON, is a 72 F with h/o cirrhosis confirmed by liver bx 08/2022 who presented to TCU after R hip replacement 07/11/[address] Rowland. Doing well postop but did have to go to ED due to nosebleed. PPD on LUE now (+). No prior PPD, no known TB exposure, no fam h/o TB, no h/o foreign travel, no h/o prolonged exposure to inmates, recent immigrants, or homeless population. Denies weight loss, night sweats, hemoptysis. Full ROS performed and neg except as noted above. [facility] Medical History Adrenal nodule Arthritis Back pain Diabetes Dietary restriction Elevated liver enzymes GERD (gastroesophageal reflux disease) History of edema History of pain when walking History of ulceration HTN (hypertension) Hx of blood diseases Hyperlipidemia Hypokalemia Leg cramps Liver disease Migraine headache Nausea Non-smoker Osteoporosis Pelvic pain Post-menopausal Shortness of breath on exertion Thyroid nodule Wears glasses Wears partial dentures Home Medications amlodipine 5 mg tablet 5 mg PO DAILY BP 01/16/19 [History Last Taken 07/13/23 08:45] hydrochlorothiazide 25 mg tablet 25 mg PO DAILY BP 01/16/19 [History Last Taken 07/13/23 08:45] atorvastatin 20 mg tablet 20 mg PO DAILY CHOLESTEROL 06/16/22 [History Last Taken 07/13/23 08:45] omeprazole 40 mg capsule,delayed release 40 mg PO DAILY GERD 06/16/22 [History Last Taken 07/13/23 08:45] azathioprine 50 mg tablet 50 mg PO BID LIVER 06/21/23 [History Last Taken 07/13/23 08:30] potassium chloride 20 mEq tablet,extended release 20 meq PO BID SUPPLEMENT 06/21/23 [History Last Taken 07/13/23 08:45] ursodiol 250 mg tablet 250 mg PO BID LIVER 06/21/23 [History Last Taken 07/13/23 08:45] valacyclovir 500 mg tablet 500 mg PO DAILY COLD SORE 06/21/23 [History Last Taken Unknown] acetaminophen 500 mg tablet 1,000 mg (2 x 500 mg) PO Q8 Pain 30 days #180 tabs 07/13/23 [Rx Last Taken 07/13/23 05:15] aspirin 81 mg chewable tablet 81 mg PO BIDCM Postop DVT prophylaxis 30 days #60 tabs 07/13/23 [Rx Last Taken 07/13/23 08:45] oxycodone 5 mg tablet 2.5 mg (1/2 x 5 mg) PO Q4H PRN PRN Pain Score 4-10 7 days #56 tabs 07/13/23 [Rx Last Taken 07/13/23 08:45] Allergy/AdvReac Type Severity Reaction Status Date / Time Estrogens AdvReac Other Verified 07/14/23 07:51 Family History Father Alzheimer disease Mother Diabetes Hypertension Heart disease CVA (cerebral vascular accident) Sister Breast cancer Heart disease Surgical History History of bunionectomy History of cholecystectomy Hx of colonoscopy Hx of foot surgery Hx of left cataract extraction Hx of right cataract extraction Hx of tooth extraction Hx of tubal ligation Social History household members: none Smoking Status: Never smoker alcohol intake: never substance use type: does not use Physical Exam Const alert, oriented x3 and no apparent distress General Appearance: cooperative HEENT normocephalic and head/scalp atraumatic Eyes PERRL and EOMs intact bilaterally Neck supple and No nodes Resp normal air movement and clear to auscultation bilaterally Cardio regular rate and regular rhythm GI soft to palpation, non-tender and non-distended Extremity General Extremity: Negative for edema Skin no rashes or lesions noted Neuro CN's II-XII intact bilaterally Lab / Micro Data Attestation: I reviewed the patient's lab results. 07/19/23 05:13 07/18/23 06:40 Labs: Laboratory Results - last 24 hr 07/19/23 05:13: Hgb 9.9 L, Hct 29.7 L
[2023-07-19 13:26] VITALS: BMI 23.5
[2023-07-19 15:04] VITALS: BP 100/63; PULSE 98; RESP 15; TEMP 36.7; O2SAT 100
[2023-07-19] MEDS: Atorvastatin Calcium 20 MG Tablet PO (20:45)
[2023-07-19] MEDS: Sodium Chloride 0.65% 1 SPRAY SPRAY.BTL NASAL (23:35)
[2023-07-20] MEDS: oxyCODONE 5 MG Tablet PO ×4 (03:46→21:58)
[2023-07-20] MEDS: Acetaminophen 500 MG Tablet 1000 MG PO ×3 (05:28→21:07)
[2023-07-20] MEDS: Sodium Chloride 0.65% 1 SPRAY SPRAY.BTL NASAL (05:28)
[2023-07-20] MEDS: azaTHIOprine 50 MG Tablet PO ×2 (08:25→17:25)
[2023-07-20] MEDS: Ursodiol 250 MG Tablet PO ×2 (08:27→21:58)
[2023-07-20] MEDS: Potassium Chloride Oral Tablet 20 MEQ PO ×2 (08:27→21:07)
[2023-07-20] MEDS: Ascorbic Acid 500 MG Tablet PO (08:27)
[2023-07-20] MEDS: hydroCHLOROthiazide 25 MG Tablet PO (08:27)
[2023-07-20] MEDS: Iron Polysaccharide Complex 150 MG CAPSULE PO (08:27)
[2023-07-20] MEDS: Loratadine 10 MG Tablet PO (08:27)
[2023-07-20] MEDS: amLODIPine 5 MG Tablet PO (08:27)
[2023-07-20] MEDS: Pantoprazole Sodium 40 MG Tablet PO (08:28)
[2023-07-20 08:33] VITALS: BP 110/63; PULSE 80
--- NOTE | 2023-07-20 10:22 | CASEMGMT ---
Social Work IDT met with patient and family members for care plan meeting. Discussed patient's progress in PT/OT/SN. Educated to [facility] insurance with [employer] 07/20, noted copays begin day 21-100 at $196/day, and continued stay is not guaranteed with each review. Pt needs to be at PLOF to return home alone safely. Sister stated she is able to stay with pt for 1-2 weeks at time of DC. Answered family's questions. SW will continue to follow for DC planning. ABRAM Pierson MANAGER SUMMER
--- NOTE | 2023-07-20 10:41 | CASEMGMT ---
Addendum entered by Lori Greenberg 07/20/23 10:44: Pt reported trouble falling asleep. Offered to speak with Dr for intervention. Pt agreed. Written communication left with Dr. Original Note: Social Work BIMS () and PHQ-9 (03/10) completed for MDS assessment. Lori Greenberg, ABRAM FELIXW
--- NOTE | 2023-07-20 11:22 | NURSING ---
OLD DRESSING REMOVED FROM RT HIP. OLD DRY DRAINAGE NOTED. CLEANED AREA, MICHAEL INTACT, NO S/S OF INFECTION. ABD APPLIED TO AREA. PT TOLERATED WELL.
--- NOTE | 2023-07-20 11:52 | NURSING ---
Lead Applier Note; MDS Complete
--- NOTE | 2023-07-20 15:02 | NURSING ---
PT LEFT BY WHEEL CHAIR TO APPOINTMENT AT 1400.
[2023-07-20 16:00] VITALS: BP 128/60; PULSE 72; RESP 16; TEMP 36.4; O2SAT 99
--- NOTE | 2023-07-20 16:11 | NURSING ---
PT RETURNED TO FLOOR BY WHEELCHAIR WITH FAMILY FROM APPOINTMENT AT 1530. SEE NEW ORDERS.
[2023-07-20 18:07] LABS: QNTFERON TB Nil Value 1.61 IU/mL (.); QNTFERON TB1+ Ag Value 5.78 IU/mL (.); QNTFERON TB2+ Ag Value 5.98 IU/mL (.); QNTIFERON TB Positive Criteria Positive (Negative)
[2023-07-20] MEDS: Atorvastatin Calcium 20 MG Tablet PO (21:07)
[2023-07-20] MEDS: MELATONIN 10 MG TABLET PO (21:07)
[2023-07-20] MEDS: Sodium Chloride 0.65% 1 SPRAY SPRAY.BTL 3 SPRAY NASAL (21:08)
[2023-07-21] MEDS: Acetaminophen 500 MG Tablet 1000 MG PO ×3 (06:02→21:39)
[2023-07-21] MEDS: Sodium Chloride 0.65% 1 SPRAY SPRAY.BTL 3 SPRAY NASAL ×3 (06:02→21:40)
[2023-07-21] MEDS: oxyCODONE 5 MG Tablet PO ×3 (06:02→23:43)
--- NOTE | 2023-07-21 07:48 | NURSING ---
Dr Cottrell notified of pt TB Quant positive, No new orders continue with his plan per his note.
[2023-07-21] MEDS: Pantoprazole Sodium 40 MG Tablet PO (08:23)
[2023-07-21] MEDS: Iron Polysaccharide Complex 150 MG CAPSULE PO (08:23)
[2023-07-21] MEDS: Potassium Chloride Oral Tablet 20 MEQ PO ×2 (08:23→21:40)
[2023-07-21] MEDS: Loratadine 10 MG Tablet PO (08:23)
[2023-07-21] MEDS: Ursodiol 250 MG Tablet PO ×2 (08:23→21:40)
[2023-07-21] MEDS: amLODIPine 5 MG Tablet PO (08:24)
[2023-07-21] MEDS: hydroCHLOROthiazide 25 MG Tablet PO (08:24)
[2023-07-21] MEDS: azaTHIOprine 50 MG Tablet PO ×2 (08:24→17:11)
[2023-07-21] MEDS: Ascorbic Acid 500 MG Tablet PO (08:24)
[2023-07-21 08:26] VITALS: BP 114/66; PULSE 78; RESP 16; TEMP 36.8; O2SAT 97
--- NOTE | 2023-07-21 08:29 | NURSING ---
resident refusing covid vaccine today, states no, I feel like there is too much going on right now, its been one thing after the other
[2023-07-21 09:28] VITALS: PULSE 78; RESP 16; O2SAT 97
[2023-07-21] MEDS: Neomycin/Bacitracin/Polymyxin Ointment 1 APPLIC TOPICAL ×3 (09:54→21:41)
[2023-07-21] MEDS: Menthol/Lanolin/Calamine/Znox 113 GM Tube 1 APPLIC TOPICAL ×2 (09:54→21:44)
--- NOTE | 2023-07-21 14:50 | CASEMGMT ---
Social Work Insurance issued LCD 07/23, DC 07/24. ANA spoke with pt, notified of DC date, educated to appeal rights. Pt states she would like to get a little stronger prior to going home, and is electing to appeal. SW educated to still having DC plans in place in case pt loses appeal and DC remains 07/23. Pt expressed understanding. Confirmed pt's needs are HHC, 3-in-1 commode and FWW. ANA printed list of skilled HHC providers with quality and resource data via [employer]. ANA sent referral to [facility] for DME via [employer]. Plan: DC home alone 07/24, pending appeal, HHC PT/OT/SN, 3-in-1 commode, FWW Lori Greenberg, STRIP CUTTER DIRECTOR OF ONCOLOGY
--- NOTE | 2023-07-21 19:13 | DS.PCM_ITS ---
Providers Date of Admission: 07/13/23 Primary Care Physician: CARLA Jimenez Consultations 07/16/23 15:29 Consult: Infectious Disease Routine Consulting Provider: Osmani Cottrell Reason for Consult: Positive TB test EMERGENT Consult: No MD Notified: Yes Date Notified: 07/16/23 Time Notified: 15:31 Method of Notification: Text Reason For Visit: RT TOTAL HIP REPLACEMENT Diagnosis Discharge Diagnosis (1) Cirrhosis: Status: Chronic Code(s): K74.60 - Unspecified cirrhosis of liver (2) Latent tuberculosis: Status: Acute Code(s): Z22.7 - Latent tuberculosis Plan 72 year old female with below past medical history underwent right total hip replacement 07/11/[address] Rowland, admitted to TCU with debility, here for rehabilitation, strengthening, prior to discharge home alone. * Debility - PT/OT. * Pain - Tylenol 1000mg q8, Oxycodone 2.5mg q4h prn pain (4-10). * Bowel - senna/colace 1 tablet bid prn. * Adult immunization - Administer pneumonia vaccine, covid19 vaccine, flu vaccine as appropriate. * DVT prophylaxis - Aspirin 81mg bid thru 08/12/2023. * Hypertension - Amlodipine 5mg daily, HCTZ 25mg daily. * Hyperlipidemia - Atorvastatin 20mg qhs. * Autoimmune Hepatitis - Imuran 50mg bidcm. * GERD - Pantoprazole 40mg daily. * Hypokalemia - KCL 20meq bid. * Primary biliary cirrhosis - Ursodiol 250mg bid. Medications at Discharge Home Medications amlodipine 5 mg tablet 5 mg PO DAILY BP 01/16/19 hydrochlorothiazide 25 mg tablet 25 mg PO DAILY BP 01/16/19 atorvastatin 20 mg tablet 20 mg PO DAILY CHOLESTEROL 06/16/22 omeprazole 40 mg capsule,delayed release 40 mg PO DAILY GERD 06/16/22 azathioprine 50 mg tablet 50 mg PO BID LIVER 06/21/23 ursodiol 250 mg tablet 250 mg PO BID LIVER 06/21/23 valacyclovir 500 mg tablet 500 mg PO DAILY COLD SORE 06/21/23 acetaminophen 500 mg tablet 1,000 mg (2 x 500 mg) PO Q8 Pain 30 days #180 tabs 07/13/23 acetaminophen 500 mg tablet 1,000 mg (2 x 500 mg) PO Q8 #0 tabs 07/21/23 ascorbic acid (vitamin C) 500 mg tablet 500 mg PO 1000 30 days #30 tabs 07/21/23 neomycin-bacitracn Zn-polymyx 3.5 mg-400 unit-5,000 unit/gram top oint (Triple Antibiotic) 1 applic topical TID 30 days #3.5 grams 07/21/23 oxycodone 5 mg tablet 5 mg PO Q4H PRN PRN Pain Score 4-10 7 days #42 tabs 07/21/23 polysaccharide iron complex 150 mg iron capsule (Ferrex) 150 mg PO DAILY 30 days #30 caps 07/21/23 potassium chloride 20 mEq tablet,extended release(part/cryst) (Klor-Con M) 20 meq PO BID 30 days #60 tabs 07/21/23 Hospital Course Operations total hip replacement (Right.) Procedures None Summary of Care Provided Minutes Spent on Discharge: 35 Hospital Course: 72 year old female with below past medical history underwent right total hip replacement 07/11/[address] Rowland, admitted to TCU with debility, here for rehabilitation, strengthening, prior to discharge home alone. 07/14/2023 Epistaxis requiring pack in [facility] ED, packing later removed by ENT with complications. Resident PPD positive, Chest X-ray negative, TB Gold positive. Dr. Cottrell recommended monitoring for signs of active TB, but no treatment for latent TB due to autoimmune hepatitis/cirrhosis, consider Chest X-ray annually. Stye OD treated with warm compresses, bacitracin ointment. Discharge home alone 07/24/2023, Home Health Care PT/OT/SN, 3-in-1 commode, Front Wheeled Walker. Physical Exam Const alert General Appearance: cooperative HEENT normocephalic Eyes PERRL and EOMs intact bilaterally Neck supple, no JVD and no carotid bruits Resp normal respiratory effort, normal air movement and clear to auscultation bilaterally Cardio regular rate and regular rhythm GI normal to inspection, nondistended, normoactive bowel sounds, non-tender and non-distended Extremity normal capillary refill General Extremity: Negative for edema Skin no rashes or lesions noted General Skin Exam: no breakdown Psych affect normal Appearance: appropriate Weight / BMI Weight Weight: 60.237 kg Body Mass Index (BMI) 23.5 ABG / Lab / Microbiology Data 07/19/23 05:13 07/18/23 06:40 D/C Instructions Discharge Diet: No restrictions Discharge Activity: Return to Normal Activity, May Shower and Use Walker Weight Bearing Status: Weight bearing as tolerated Call your doctor if you observe: Fever of 101 or Higher, Inability to urinate, Inability to have a bowel movement, Shortness of breath, Dizziness, Fainting spells, Swelling in the ankles, Chest pain and Uncontrolled pain Additional Instructions: Discharge home alone 07/24/2023, Home Health Care PT/OT/SN, 3-in-1 commode, Front Wheeled Walker. Please Follow Up With: Louise Diez Clinical Cloth Shrinking Machine Operator When: As scheduled. Meaningful Use Info Meaningful Use Diagnoses (Choose all that apply): None applicable Discharge Plan Admission Admit Date/Time: 07/13/23 15:42 Primary Reason for Your Visit: Debility. Attending Provider: Nickolas Gautam Chi Primary Care Provider: Marisela Hollis NP Consulting Providers: Osmani Cottrell Instructions Additional Instructions / Restrictions: Discharge home alone 07/24/2023, Home Health Care PT/OT/SN, 3-in-1 commode, Front Wheeled Walker. Discharge Orders/Prescriptions Prescriptions: New acetaminophen 500 mg Tablet 1,000 mg PO Q8 Qty: 0 0RF Triple Antibiotic 3.5mg-400 unit- 5,000 unit/gram Ointment 1 applic topical TID 30 Days Qty: 3.5 0RF Protocol: *Topical Application Instructions APPLICATION INSTRUCTIONS: Right upper eyelid. polysaccharide iron complex [Ferrex 150] 150 mg iron Capsule 150 mg PO DAILY 30 Days Qty: 30 0RF potassium chloride [Klor-Con M20] 20 mEq Tablet,Er Particles/Crystals 20 meq PO BID 30 Days Qty: 60 0RF ascorbic acid (vitamin C) 500 mg Tablet 500 mg PO 1000 30 Days Qty: 30 0RF oxycodone 5 mg Tablet 5 mg PO Q4H PRN PRN (Reason: Pain Score 4-10) 7 Days Qty: 42 0RF Continued atorvastatin 20 mg tablet 20 mg PO DAILY omeprazole 40 mg capsule,delayed release(DR/EC) 40 mg PO DAILY amlodipine 5 MG tablet 5 mg PO DAILY hydrochlorothiazide 25 MG tablet 25 mg PO DAILY valacyclovir 500 mg tablet 500 mg PO DAILY Patient Comments: TAKE 1 TABLET BY MOUTH DAILY WITH PLENTY OF WATER azathioprine 50 mg tablet 50 mg PO BID ursodiol 250 mg tablet 250 mg PO BID Discontinued potassium chloride 20 mEq tablet extended release 20 meq PO BID aspirin 81 mg Tablet,Chewable 81 mg PO BIDCM 30 Days Qty: 60 0RF oxycodone 5 mg Tablet 2.5 mg PO Q4H PRN PRN (Reason: Pain Score 4-10) 7 Days Qty: 56 0RF No Action acetaminophen 500 mg Tablet 1,000 mg PO Q8 30 Days Qty: 180 0RF Referrals / Follow Up: Marisela Hollis BENCH EXAMINER, BENCH EXAMINER-C [Primary Care Provider] - Disposition Disposition (needs filled in before D/C Order can be placed): Home Health Service
[2023-07-21] MEDS: MELATONIN 10 MG TABLET PO (21:40)
[2023-07-21] MEDS: Atorvastatin Calcium 20 MG Tablet PO (21:43)
[2023-07-22] MEDS: oxyCODONE 5 MG Tablet PO ×4 (06:44→20:19)
[2023-07-22] MEDS: Acetaminophen 500 MG Tablet 1000 MG PO ×3 (06:44→21:27)
[2023-07-22] MEDS: Neomycin/Bacitracin/Polymyxin Ointment 1 APPLIC TOPICAL ×3 (06:46→21:27)
[2023-07-22] MEDS: Sodium Chloride 0.65% 1 SPRAY SPRAY.BTL 3 SPRAY NASAL ×3 (06:46→21:27)
[2023-07-22] MEDS: Iron Polysaccharide Complex 150 MG CAPSULE PO (08:52)
[2023-07-22] MEDS: Ascorbic Acid 500 MG Tablet PO (08:52)
[2023-07-22] MEDS: Ursodiol 250 MG Tablet PO ×2 (08:52→21:27)
[2023-07-22] MEDS: Potassium Chloride Oral Tablet 20 MEQ PO ×2 (08:52→21:27)
[2023-07-22] MEDS: Pantoprazole Sodium 40 MG Tablet PO (08:53)
[2023-07-22] MEDS: amLODIPine 5 MG Tablet PO (08:53)
[2023-07-22] MEDS: Loratadine 10 MG Tablet PO (08:53)
[2023-07-22] MEDS: azaTHIOprine 50 MG Tablet PO ×2 (08:53→17:29)
[2023-07-22] MEDS: hydroCHLOROthiazide 25 MG Tablet PO (08:53)
[2023-07-22] MEDS: Menthol/Lanolin/Calamine/Znox 113 GM Tube 1 APPLIC TOPICAL ×2 (08:54→21:28)
[2023-07-22 08:55] VITALS: BP 107/56; PULSE 75
[2023-07-22 14:24] VITALS: BP 131/50; PULSE 89; RESP 16; TEMP 36.8; O2SAT 100
--- NOTE | 2023-07-22 15:33 | CASEMGMT ---
Addendum entered by Lori Greenberg 07/22/23 15:52: SW followed up with pt. Pt provided three choices, first choice is [facility]. SW phoned referral to [facility] for PT/OT. Original Note: Social Work SW followed up with pt about DC and appealing. Pt stated she changed her mind and is not appealing. Her sister is coming to stay with her and agreeable to DC home 07/24. The DME was delivered to pt's room. SW inquired about [facility] agency. pt has not chosen an agency yet. SW encouraged to choose agency for this worker to coordinate prior to weekend/DC. Pt to review list. ABRAM PiersonW
[2023-07-22] MEDS: Atorvastatin Calcium 20 MG Tablet PO (21:27)
[2023-07-22] MEDS: MELATONIN 10 MG TABLET PO (21:27)
[2023-07-23] MEDS: Acetaminophen 500 MG Tablet 1000 MG PO ×3 (06:15→20:59)
[2023-07-23] MEDS: Sodium Chloride 0.65% 1 SPRAY SPRAY.BTL 3 SPRAY NASAL ×3 (06:16→20:59)
[2023-07-23] MEDS: Neomycin/Bacitracin/Polymyxin Ointment 1 APPLIC TOPICAL ×3 (06:17→20:58)
[2023-07-23 09:26] VITALS: BP 105/69; PULSE 87; RESP 16; TEMP 36.5; O2SAT 100
[2023-07-23] MEDS: azaTHIOprine 50 MG Tablet PO ×2 (09:31→17:18)
[2023-07-23] MEDS: Loratadine 10 MG Tablet PO (09:31)
[2023-07-23] MEDS: Iron Polysaccharide Complex 150 MG CAPSULE PO (09:31)
[2023-07-23] MEDS: amLODIPine 5 MG Tablet PO (09:31)
[2023-07-23] MEDS: Potassium Chloride Oral Tablet 20 MEQ PO ×2 (09:31→20:57)
[2023-07-23] MEDS: hydroCHLOROthiazide 25 MG Tablet PO (09:31)
[2023-07-23] MEDS: Menthol/Lanolin/Calamine/Znox 113 GM Tube 1 APPLIC TOPICAL ×2 (09:32→20:57)
[2023-07-23] MEDS: Ursodiol 250 MG Tablet PO ×2 (09:32→21:00)
[2023-07-23] MEDS: Ascorbic Acid 500 MG Tablet PO (09:32)
[2023-07-23] MEDS: Pantoprazole Sodium 40 MG Tablet PO (09:32)
[2023-07-23 10:00] VITALS: PULSE 90; RESP 16
[2023-07-23] MEDS: oxyCODONE 5 MG Tablet PO (20:55)
[2023-07-23] MEDS: Atorvastatin Calcium 20 MG Tablet PO (20:57)
[2023-07-23] MEDS: MELATONIN 10 MG TABLET PO (20:58)
[2023-07-24] MEDS: Sodium Chloride 0.65% 1 SPRAY SPRAY.BTL 3 SPRAY NASAL ×2 (06:48→13:15)
[2023-07-24] MEDS: Acetaminophen 500 MG Tablet 1000 MG PO ×2 (06:48→13:15)
[2023-07-24] MEDS: Neomycin/Bacitracin/Polymyxin Ointment 1 APPLIC TOPICAL ×2 (06:49→13:15)
[2023-07-24] MEDS: hydroCHLOROthiazide 25 MG Tablet PO (08:02)
[2023-07-24] MEDS: Iron Polysaccharide Complex 150 MG CAPSULE PO (08:02)
[2023-07-24] MEDS: azaTHIOprine 50 MG Tablet PO (08:02)
[2023-07-24] MEDS: Loratadine 10 MG Tablet PO (08:02)
[2023-07-24] MEDS: Potassium Chloride Oral Tablet 20 MEQ PO (08:03)
[2023-07-24] MEDS: amLODIPine 5 MG Tablet PO (08:03)
[2023-07-24] MEDS: Ursodiol 250 MG Tablet PO (08:03)
[2023-07-24] MEDS: Pantoprazole Sodium 40 MG Tablet PO (08:03)
[2023-07-24] MEDS: Menthol/Lanolin/Calamine/Znox 113 GM Tube 1 APPLIC TOPICAL (08:04)
[2023-07-24] MEDS: Ascorbic Acid 500 MG Tablet PO (08:04)
[2023-07-24 08:09] VITALS: PULSE 76; RESP 18; O2SAT 99
[2023-07-24 08:15] VITALS: BP 128/63; PULSE 76; RESP 16; TEMP 36.8; O2SAT 99
--- NOTE | 2023-07-24 09:50 | NURSING ---
28 twila removed from RT hip per Dr quiles order this AM, pt to f/u with Erasmo Richardson on 08/09 1500.
[2023-07-24] MEDS: oxyCODONE 5 MG Tablet PO (13:15)
--- NOTE | 2023-07-25 10:54 | MDS.RN ---
Information for the mds was obtained from review of the clinical record, interview of resident, staff, and direct observation of resident's care.
== END 2023-07-24 14:21 | disposition home health service (06) | DRG 561 ==
PROVIDERS: Admitting Provider Family Medicine Geriatric Medicine; PCP Nurse Practitioner Primary Care; Visit Provider Family Medicine Geriatric Medicine
DX: Z47.1 Aftercare following joint replacement surgery (principal); E11.9 Type 2 diabetes mellitus without complications; K74.3 Primary biliary cirrhosis; K75.4 Autoimmune hepatitis; I10 Essential (primary) hypertension; E87.6 Hypokalemia; E78.5 Hyperlipidemia, unspecified; K21.9 Gastro-esophageal reflux disease without esophagitis; Z96.641 Presence of right artificial hip joint; Z79.82 Long term (current) use of aspirin; Z79.899 Other long term (current) drug therapy; Z22.7 Latent tuberculosis; Z28.03 Immunization not carried out because of immune compromised state of patient; R04.0 Epistaxis
CPT/HCPCS: 36415; 71046; 73502; 80048; 82962; 83036; 83735; 85014; 85018; 85025; 85027; 86480; 87081; 88305; 88311; 93005; 94668; 96365; 96366; 96375; 97110; 97116; 97162; 97166; 97530; 97535; 99221; 99252; C1776; J7120; A4216; G0378; G0463; J2405; J3475

== ENCOUNTER 2023-07-14 07:50 | Emergency (ER) | payer MEDICARE, SELFPAY ==
[2023-07-14 07:51] VITALS: BP 153/87; PULSE 77; RESP 18; TEMP 36.7; O2SAT 100; BMI 23.6
[2023-07-14] MEDS: Tetracaine/Benzocaine/Butamben 1 APPLIC TOPICAL (08:07)
[2023-07-14] MEDS: Oxymetazoline 0.05% 1 SPRAY SPRAY.BTL 2 SPRAY NASAL (08:07)
--- NOTE | 2023-07-14 08:47 | EDS_ITS ---
HPI History of Present Illness Chief Complaint: Nosebleed Informant: patient Narrative Narrative: Patient sent down from the TCU this morning secondary to nosebleed. She states that her nose has been very dry recently. This morning she was blowing her nose when she suddenly developed a nosebleed. She does have a history of cirrhosis and hepatitis but do not see that she is on any blood thinners. It does appear she takes baby aspirin. She is in TCU to rehab after a knee replacement. [facility] Medical History Adrenal nodule Arthritis Back pain Diabetes Dietary restriction Elevated liver enzymes GERD (gastroesophageal reflux disease) History of edema History of pain when walking History of ulceration HTN (hypertension) Hx of blood diseases Hyperlipidemia Hypokalemia Leg cramps Liver disease Migraine headache Nausea Non-smoker Osteoporosis Pelvic pain Post-menopausal Shortness of breath on exertion Thyroid nodule Wears glasses Wears partial dentures Home Medications amlodipine 5 mg tablet 5 mg PO DAILY BP 01/16/19 [History Last Taken 07/13/23 08:45] hydrochlorothiazide 25 mg tablet 25 mg PO DAILY BP 01/16/19 [History Last Taken 07/13/23 08:45] atorvastatin 20 mg tablet 20 mg PO DAILY CHOLESTEROL 06/16/22 [History Last Taken 07/13/23 08:45] omeprazole 40 mg capsule,delayed release 40 mg PO DAILY GERD 06/16/22 [History Last Taken 07/13/23 08:45] azathioprine 50 mg tablet 50 mg PO BID LIVER 06/21/23 [History Last Taken 07/13/23 08:30] potassium chloride 20 mEq tablet,extended release 20 meq PO BID SUPPLEMENT 06/21/23 [History Last Taken 07/13/23 08:45] ursodiol 250 mg tablet 250 mg PO BID LIVER 06/21/23 [History Last Taken 07/13/23 08:45] valacyclovir 500 mg tablet 500 mg PO DAILY COLD SORE 06/21/23 [History Last Taken Unknown] acetaminophen 500 mg tablet 1,000 mg (2 x 500 mg) PO Q8 Pain 30 days #180 tabs 07/13/23 [Rx Last Taken 07/13/23 05:15] aspirin 81 mg chewable tablet 81 mg PO BIDCM Postop DVT prophylaxis 30 days #60 tabs 07/13/23 [Rx Last Taken 07/13/23 08:45] oxycodone 5 mg tablet 2.5 mg (1/2 x 5 mg) PO Q4H PRN PRN Pain Score 4-10 7 days #56 tabs 07/13/23 [Rx Last Taken 07/13/23 08:45] Allergy/AdvReac Type Severity Reaction Status Date / Time Estrogens AdvReac Other Verified 07/14/23 07:51 Family History Father Alzheimer disease Mother Diabetes Hypertension Heart disease CVA (cerebral vascular accident) Sister Breast cancer Heart disease Surgical History History of bunionectomy History of cholecystectomy Hx of colonoscopy Hx of foot surgery Hx of left cataract extraction Hx of right cataract extraction Hx of tooth extraction Hx of tubal ligation Social History household members: none Smoking Status: Never smoker alcohol intake: never substance use type: does not use ROS ROS ED Constitutional Constitutional ED: Denies chills or fever(s) Eyes Eyes: Denies change in vision or discharge from eye(s) ENT ENT ED: Reports other Details: Mild bleeding from the nares bilaterally ; Denies discharge from eye(s), rhinorrhea or sore throat Cardiovascular Cardiovascular: Denies chest pain Respiratory/Chest Respiratory/Chest: Denies cough or dyspnea Gastrointestinal Gastrointestinal: Denies abdominal pain, nausea or vomiting Musculoskeletal Musculoskeletal: Denies back pain Integumentary Denies Abrasions or rash Neurologic Neurologic: Denies headache(s) or weakness Psychiatric Psychiatric: Denies anxiety or depression Allergic/Immunologic Allergic/Immunologic ED: Denies lip swelling or urticaria EXAM Physical Exam Const Vital Signs: 07/14/23 07:51 Temperature 98.1 F Temperature Source Oral Pulse Rate 77 Respiratory Rate 18 Blood Pressure 153/87 H Blood Pressure Mean 109 Pulse Ox 100 Oxygen Delivery Method Room Air Positive well nourished and well developed General Appearance ED: well developed HEENT HEENT Narrative: Irritated mucosa along the medial border of the nares bilaterally, right greater than left. Mild oozing of blood. Eyes EOMs intact bilaterally Chest Wall inspection of chest normal and palpation of chest normal Resp normal respiratory effort and clear to auscultation bilaterally Cardio regular rate and regular rhythm GI non-tender Palpation: soft Neuro oriented x3 Skin no rashes or lesions noted MDM MDM MDM Narrative Medical decision making narrative: Cottonball soaked with Cetacaine and Afrin placed in the right nares. This was removed and Merisel packing placed on the right. Patient was observed and has had no further significant bleeding. She be discharged back to TCU. Discharge Plan Triage Chief Complaint: Nosebleed ED Provider: Lizbeth Ansari Dx/Rx/DC Orders Clinical Impression: Epistaxis Instructions: ED Epistaxis (Adult) Prescriptions: No Action atorvastatin 20 mg tablet 20 mg PO DAILY omeprazole 40 mg capsule,delayed release(DR/EC) 40 mg PO DAILY amlodipine 5 MG tablet 5 mg PO DAILY hydrochlorothiazide 25 MG tablet 25 mg PO DAILY valacyclovir 500 mg tablet 500 mg PO DAILY Patient Comments: TAKE 1 TABLET BY MOUTH DAILY WITH PLENTY OF WATER potassium chloride 20 mEq tablet extended release 20 meq PO BID azathioprine 50 mg tablet 50 mg PO BID ursodiol 250 mg tablet 250 mg PO BID acetaminophen 500 mg Tablet 1,000 mg PO Q8 30 Days Qty: 180 0RF aspirin 81 mg Tablet,Chewable 81 mg PO BIDCM 30 Days Qty: 60 0RF oxycodone 5 mg Tablet 2.5 mg PO Q4H PRN PRN (Reason: Pain Score 4-10) 7 Days Qty: 56 0RF Primary Care Provider: Marisela Hollis NP Referrals: Alli Bro MD [Med Staff - Active Staff] - 3-5 Days Marisela Hollis NP, MECHANICAL ENGINEERING TEACHER-C [Primary Care Provider] - Disposition Disposition: Home, Self Care
[2023-07-14 10:24] VITALS: BP 152/89; PULSE 81; RESP 16; O2SAT 99
--- NOTE | 2023-07-14 10:25 | ED.RN ---
called tcu with update. pt returned to tcu via .
== END 2023-07-14 10:26 | disposition home or self-care (01) ==
PROVIDERS: Emergency Provider Emergency Medicine; PCP Nurse Practitioner Primary Care; Visit Provider Emergency Medicine
DX: R04.0 Epistaxis (principal)
CPT/HCPCS: 30901; 99282

== ENCOUNTER → 2024-01-23 | Outpatient (CLI) | payer MEDICARE, SELFPAY ==
--- NOTE | 2024-01-23 13:36 | CT_ITS ---
EXAM: CT ABDOMEN AND PELVIS WITHOUT AND WITH INTRAVENOUS CONTRAST CLINICAL INDICATION: CIRRHOSIS, Autoimmune hepatitis TECHNIQUE: Helically acquired images were obtained of the abdomen and pelvis without and with intravenous contrast. This CT exam was performed using one or more of the following dose reduction techniques: automated exposure control, adjustment of the mA and/or kV according to patient size, and/or use of iterative reconstruction technique. CONTRAST: [id number] COMPARISON: No relevant prior studies available. FINDINGS: LOWER THORAX: Coronary artery calcifications. Minimal dependent atelectasis in the basilar lungs. No cardiomegaly. No significant pericardial effusion. ABDOMEN: LIVER: Hepatic capsular nodularity consistent with a history of cirrhosis. No evidence of focal hepatic lesion or diffuse enhancement abnormality throughout the liver. GALLBLADDER AND BILE DUCTS: Status post cholecystectomy. There is pneumobilia. No intra- or extrahepatic biliary ductal dilation. PANCREAS: No significant abnormality. No focal cystic or solid mass. SPLEEN: No significant abnormality. Normal size without focal cystic or solid mass. ADRENALS: No significant abnormality. No nodules. KIDNEYS AND URETERS: Bilateral renal cysts are present for which no follow-up is indicated. Normal renal size and position. No hydronephrosis. STOMACH AND BOWEL: Colonic diverticulosis without evidence of acute diverticulitis. No stomach or bowel distention. PELVIS: APPENDIX: No evidence of acute appendicitis. BLADDER: No significant abnormality. REPRODUCTIVE: Normal as visualized. No mass. ABDOMEN and PELVIS: INTRAPERITONEAL SPACE: No significant abnormality. No ascites or other fluid collection. No free air. BONES/JOINTS: Right hip arthroplasty. Degenerative changes throughout the spine. Degenerative anterolisthesis of L4 upon L5 secondary to facet arthrosis. No suspicious lytic or blastic abnormality. SOFT TISSUES: No significant abnormality. No discrete abdominal or pelvic wall hernia. VASCULATURE: Atherosclerosis of the aorta and its branch vessels. LYMPH NODES: No significant abnormality. No enlarged lymph nodes. CT/CT Abd/Pelvis W/WO Contrast IMPRESSION: 1. No discrete evidence of hepatic mass. 2. Hepatic capsular nodularity consistent with a history of cirrhosis. 3. There is pneumobilia. Status post cholecystectomy. 4. Colonic diverticulosis without evidence of acute diverticulitis. Electronically Signed: Jass Pendleton DO at 23:43 EDT ,
[2024-01-23 14:00] LABS: CREATININE FINGERSTICK < 1.0 mg/dL (0.55-1.02); EGFR FINGERSTICK > 60.0000 mL/min (>60)
[2024-01-23 15:05] LABS: Ammonia < 10.0 umol/L (11-32)
[2024-01-23 15:07] LABS: Absolute Lymphocyte Count 0.94 X10^3/uL (0.83-4.51); Absolute Neutrophil Count 2.1 X10^3/uL (2.0-7.7); Basophil# 0.03 X10^3/uL; Basophil% 0.9 % (0-1); Eosinophil# 0.05 X10^3/uL; Eosinophils% 1.4 % (0-5); Hematocrit 36.1 % (37-47); Hemoglobin 11.5 g/dL (12.0-15.0); Lymphocyte # 0.94 X10^3/ul (0.83-4.51); Lymphocyte % 27.2 % (19-41); Mean Corp Hgb Conc 31.9 g/dL (32-36); Mean Corpuscular Hgb 28.4 pg (27.0-32.0); Mean Corpuscular Volume 89.1 fL (81-99); Mean Platelet Vol. 10.6 fl (6.2-12.0); Monocyte# 0.33 X10^3/uL; Monocyte% 9.5 % (0-10); NRBC Flagged by Analyzer 0 % (0-5); Neutrophil # 2.09 X10^3/uL (2.7-7.7); Neutrophil % 60.4 % (47-70); Platelet Count 183 K/mm3 (150-450); RBC Distribution Width CV 16.7 % (11.6-14.6); RBC Distribution Width SD 54.5 fl (35.1-43.9); Red Blood Count 4.05 M/mm3 (4.2-5.4); White Blood Count 3.5 K/mm3 (4.4-11.0)
[2024-01-23 15:19] LABS: Prothrombin Time (Protime)PT. 13.2 SECONDS (11.7-14.9)
[2024-01-23 15:49] LABS: ALB/GLOB Ratio 1.1 RATIO (0.9-2.4); AST(SGOT) 16 U/L (15-37); Alanine Aminotransfer ALT/SGPT 10 U/L (13-56); Albumin, Serum 3.8 g/dL (3.2-5.0); Alkaline Phosphatase 51 U/L (45-117); Anion Gap 4 (5-15); BUN 15 mg/dL (7-18); BUN/Creat Ratio 15.3 RATIO (10-20); CRP < 2.90 mg/L (0.0-3.0); Calcium,Total 9.1 mg/dL (8.5-10.1); Chloride 106 mmol/L (98-107); Cholesterol 152 mg/dL (200); Creatinine, Serum 0.98 mg/dL (0.55-1.02); EST Glomerular Filtration Rate 59 mL/min (>60); Est Glom Filt Rate - Afr Amer 71 mL/min (>60); Ferritin 48 ng/mL (8-252); GGTP 13 U/L (5-55); Globulin 3.5 g/dL (2.2-4.2); Glucose 88 mg/dL (74-106); High Density Lipoprotein 70 mg/dL; Iron 64 ug/dL (50-170); Iron Binding Capacity,Total 347 ug/dL (250-450); PERCENT IRON SATURATION 18.4 % (15.0-55.0); Potassium 3.7 mmol/L (3.5-5.1); Protein, Total 7.3 g/dL (6.4-8.2); Sodium Level 139 mmol/L (136-145); Triglycerides 60 mg/dL; Very Low Density Lipoprotein 12 mg/dL (5-40); Vitamin D,25 Hydroxy 31.4 ng/mL
[2024-01-25 14:09] LABS: AFP, Tumor Marker 4.9 ng/mL (0.0-9.2); ANTINUCLEAR ANTIBODIES DIRECT Negative (Negative); Anti-Mitochondrial AB <20.0 Units (0.0-20.0); Anti-Smooth Muscle ABS 15 Units (0-19)
== END | disposition home or self-care (01) ==
PROVIDERS: PCP Nurse Practitioner Primary Care; Referring Provider Internal Medicine; Visit Provider Internal Medicine
DX: K74.3 Primary biliary cirrhosis (principal); K75.4 Autoimmune hepatitis; R73.09 Other abnormal glucose; E78.5 Hyperlipidemia, unspecified
CPT/HCPCS: 36415; 74178; 80053; 80061; 82105; 82140; 82306; 82728; 82977; 83036; 83516; 83540; 83550; 85025; 85610; 86038; 86140; 86225; 86235; Q9967; A4216